=== PATIENT | male | born 1945 | race Caucasian/White ===

== ENCOUNTER → 2017-12-20 | Outpatient (CLI) | payer MEDICARE, OTHER | LOC: CARD 10:34 | PROVIDERS: ATTEND Internal Medicine Cardiovascular Disease | DX: I10 Essential (primary) hypertension (principal); E78.5 Hyperlipidemia, unspecified; M19.90 Unspecified osteoarthritis, unspecified site; F43.8 Other reactions to severe stress; I65.29 Occlusion and stenosis of unspecified carotid artery | CPT/HCPCS: 93306 ==

== ENCOUNTER 2018-06-07 18:35 | Observation (INO) | payer MEDICARE ==
[~2018-06-07] VITALS: Ht 177.8 cm; Wt 82.0 kg
[2018-06-07] MEDS ORDERED: meTOprolol 5 MG/5 ML (LOPRESSOR) VIAL IV ONE ×2 (19:00→21:00)
--- NOTE | 2018-06-07 19:10 | ED Neurological Problem ---
General Chief Complaint: Cardiac/General Problems Stated Complaint: ELEV BP/EPISODE OF SLURRED SPEECH/ARM NUMBNESS Nursing Triage Note: PT AMBULATES TO ROOM 6 PT CO OF HTN PAST COUPLE DAYS, PT STATES AT 1500 HAD SLURRED SPEECH AND NUMBNESS OF R HAND THESE HAVE RESOLVED. PT STATES HAD GOTTEN WORKED UP THIS AFTERNOON AND STARTED FEELING THAT WAY. NO SLURRED SPEECH NOTED, NO WEAKNESS IN R HAND NOTED. Nursing Sepsis Screen: No Definite Risk Source: patient Exam Limitations: no limitations History of Present Illness Date Seen by Provider: Jun 07, 2018 Time Seen by Provider: 18:35 Initial Comments Here with report of episode of hypertension today with slurred speech and right arm numbness. This occurred at about 3 p.m. today but cleared later after eating and writing his arm under cold water. He did eat 2 bananas and that seemed to have helped. He did note that his blood pressure was 200 systolic and this was way out of character for him. He normally runs in the 130s to 140s systolic. Denies chest pain or breathing problems. Ultimately presented to the ER due to the elevated blood pressure. Timing/Duration: other (3.5 hours ago) Severity: moderate Associated Symptoms: No confusion; fatigue; No fever/chills, No nausea/vomiting ; paresthesia, slurred speech; No trouble walking, No vision changes, No weakness Allergies and Home Medications Allergies Coded Allergies: No Known Drug Allergies (Unverified , 06/07/18) Patient Home Medication List Home Medication List Reviewed: Yes Review of Systems Review of Systems Constitutional: see HPI; No chills, No fever Eyes: No Symptoms Reported Ears, Nose, Mouth, Throat: no symptoms reported Respiratory: No short of breath, No wheezing Cardiovascular: No chest pain, No palpitations, No syncope Gastrointestinal: No abdominal pain, No nausea, No vomiting Genitourinary: no symptoms reported Musculoskeletal: No muscle stiffness, No muscle weakness Psychiatric/Neurological: See HPI; Denies Cognitive Dysfunction, Denies Headache; Tingling (right arm) Endocrine: No Symptoms Reported Hematologic/Lymphatic: No Symptoms Reported All Other Systems Reviewed Negative Unless Noted: Yes Past Fdvakvt-Jyqppp-Iskceq Hx Past Med/Social Hx: Reviewed Nursing Past Med/Soc Hx Patient Social History Alcohol Use: Denies Use Recreational Drug Use: No Smoking Status: Never a Smoker Recent Foreign Travel: No Contact w/Someone Who Travel: No Recent Infectious Disease Expo: No Recent Hopitalizations: No Seasonal Allergies Seasonal Allergies: No Past Medical History Surgeries: No Respiratory: No Cardiac: Yes Hypertension Neurological: No Genitourinary: Yes Prostate Problems Gastrointestinal: No Musculoskeletal: No Endocrine: No HEENT: No Cancer: No Psychosocial: No Integumentary: No Family Medical History Reviewed Nursing Family Hx Physical Exam Vital Signs Vital Signs - First Documented 06/07/18 18:39 Temp 98.1 Pulse 86 Resp 16 B/P (MAP) 208/108 (141) Pulse Ox 99 Capillary Refill : Less Than 3 Seconds Height, Weight, BMI Height: 5'10.00" Weight: 180lbs. oz. 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, no motor/sensory deficits, alert, normal mood/affect, oriented x 3 Crainal Nerves: normal hearing, normal speech, PERRL Skin: normal color, warm/dry Progress/Results/Core Measures Results/Orders Lab Results Laboratory Tests Test 06/07/18 18:43 Range/Units White Blood Count 8.1 4.3-11.0 10^3/uL Red Blood Count 4.39 4.35-5.85 10^6/uL Hemoglobin 14.0 13.3-17.7 G/DL Hematocrit 41 40-54 % Mean Corpuscular Volume 93 80-99 FL Mean Corpuscular Hemoglobin 32 25-34 PG Mean Corpuscular Hemoglobin Concent 34 32-36 G/DL Red Cell Distribution Width 12.8 10.0-14.5 % Platelet Count 285 130-400 10^3/uL Mean Platelet Volume 9.5 7.4-10.4 FL Neutrophils (%) (Auto) 77 H 42-75 % Lymphocytes (%) (Auto) 16 12-44 % Monocytes (%) (Auto) 6 0-12 % Eosinophils (%) (Auto) 1 0-10 % Basophils (%) (Auto) 0 0-10 % Neutrophils # (Auto) 6.2 1.8-7.8 X 10^3 Lymphocytes # (Auto) 1.3 1.0-4.0 X 10^3 Monocytes # (Auto) 0.5 0.0-1.0 X 10^3 Eosinophils # (Auto) 0.1 0.0-0.3 10^3/uL Basophils # (Auto) 0.0 0.0-0.1 10^3/uL Prothrombin Time 14.0 12.2-14.7 SEC INR Comment 1.1 0.8-1.4 Activated Partial Thromboplast Time 29 24-35 SEC D-Dimer 0.63 H 0.00-0.49 UG/ML Sodium Level 134 L 135-145 MMOL/L Potassium Level 4.0 3.6-5.0 MMOL/L Chloride Level 105 98-107 MMOL/L Carbon Dioxide Level 20 L 21-32 MMOL/L Anion Gap 9 5-14 MMOL/L Blood Urea Nitrogen 12 7-18 MG/DL Creatinine 0.88 0.60-1.30 MG/DL Estimat Glomerular Filtration Rate > 60 BUN/Creatinine Ratio 14 Glucose Level 103 70-105 MG/DL Calcium Level 9.8 8.5-10.1 MG/DL Corrected Calcium 9.4 8.5-10.1 MG/DL Magnesium Level 2.3 1.8-2.4 MG/DL Total Bilirubin 0.5 0.1-1.0 MG/DL Aspartate Amino Transf (AST/SGOT) 14 5-34 U/L Alanine Aminotransferase (ALT/SGPT) 12 0-55 U/L Alkaline Phosphatase 66 40-136 U/L Myoglobin 60.6 10.0-92.0 NG/ML Troponin I < 0.30 <0.30 NG/ML Total Protein 6.9 6.4-8.2 GM/DL Albumin 4.5 3.2-4.5 GM/DL My Orders Orders - ADELIA WOOD MD Ekg Tracing (06/07/18 18:39) Cbc With Automated Diff (06/07/18 18:58) Comprehensive Metabolic Panel (06/07/18 18:58) Magnesium (06/07/18 18:58) Protime With Inr (06/07/18 18:58) Partial Thromboplastin Time (06/07/18 18:58) Troponin I (06/07/18 18:58) Myoglobin Serum (06/07/18 18:58) Chest 1 View, Ap/Pa Only (06/07/18 18:58) Ct Head Wo-R/O Stroke (06/07/18 18:58) Metoprolol Tartrate Injection (Lopressor (06/07/18 19:00) Fibrin Degradation Products (06/07/18 19:10) Metoprolol Tartrate Injection (Lopressor (06/07/18 21:00) Metoprolol Succinate (Xl) Tab (Toprol Xl (06/07/18 21:00) Dysphagia Screening Tool (06/07/18 20:54) Aspirin Chewable Tablet (Baby Aspirin Ch (06/07/18 20:54) Medications Given in ED Current Medications Medications Dose Ordered Sig/Rosa Route Start Time Stop Time Status Last Admin Dose Admin Metoprolol Tartrate 5 mg ONCE ONCE IV 06/07/18 19:00 06/07/18 19:02 DC 06/07/18 19:38 5 MG Metoprolol Tartrate 5 mg ONCE ONCE IV 06/07/18 21:00 06/07/18 21:01 DC 06/07/18 20:58 5 MG Vital Signs/I&O 06/07/18 18:39 Temp 98.1 Pulse 86 Resp 16 B/P (MAP) 208/108 (141) Pulse Ox 99 Blood Pressure Mean: 141 Progress Progress Note : Progress Note Seen and evaluated. IV, labs, EKG and chest x-ray ordered. CT head ordered. Lopressor 5 mg IV ordered. Monitor patient. Stroke scale was done by me is 0. Patient able to walk and has normal balance. 2100: Patient is doing better and without symptoms but still has elevated blood pressure. Given his earlier symptoms in the labile blood pressure, I believe admission is indicated. Patient did have dysphagia screen done that was negative. I did order at 324 mg by mouth as well as repeat dose of Lopressor 5 and Toprol-XL 50 mg by mouth. I did discuss the case with Dr. Martinez. She accepts patient for admission, observation status. We will order MRI in the morning. Neurochecks every 2 hours 2 and then every 8 hours. Findings concerns were discussed with patient and family who agree with plan. Chest x-ray results discussed with Dr. Martinez. I do believe this is atelectasis and not infiltrate as patient is not febrile and has no elevation of white count currently. Patient was not TPA candidate as he arrived greater than 3 hours after symptom onset and he was symptom-free on arrival. Initial ECG Impression Date: Jun 07, 2018 Initial ECG Impression Time: 18:39 Initial ECG Rate: 98 Initial ECG Rhythm: Normal Sinus Comment Sinus rhythm with normal axis. No evidence of ST elevation [place]. No previous available for comparison. Interpreted by me. Diagnostic Imaging Diagonstic Imaging: Xray Plain Films/CT/US/NM/MRI: chest Comments NAME: LIYAH MORATAYA [facility] REC#: [id number] PT STATUS: REG ER : 1945 PHYSICIAN: ADELIA WOOD MD ADMIT DATE: 06/07/18/ER Signed Date of Exam: 06/07/18 CHEST 1 VIEW, AP/PA ONLY PATIENT HISTORY: Elevated blood pressure. Slurred speech.. TECHNIQUE: Single frontal view of the chest COMPARISON: None FINDINGS: Lung volumes are large. Mild opacities are seen in the right lung base. No pleural effusion or pneumothorax is seen. The cardiac silhouette is normal in size. There is no acute osseous abnormality seen. IMPRESSION: Large lung volumes with mild opacities in the right lung base. This may be due to atelectasis or infiltrate. Dictated by: Dictated on workstation # [id number] Dict: 06/07/181925 Trans: 06/07/181952 Interpreted by: CARA TOMPKINS MD Electronically signed by: CARA TOMPKINS MD 06/07/181952 Diagonstic Imaging: CT Plain Films/CT/US/NM/MRI: head Comments NAME: LIYAH MORATAYA [facility] REC#: [id number] PT STATUS: REG ER : 1945 PHYSICIAN: ADELIA WOOD MD ADMIT DATE: 06/07/18/ER Signed Date of Exam: 06/07/18 CT HEAD WO-R/O STROKE PATIENT HISTORY: Elevated blood pressure and slurred speech. TECHNIQUE: Noncontrast axial CT of the head COMPARISON: None FINDINGS: The ventricles and cortical sulci are diffusely prominent. There is no midline shift or significant mass effect. No acute intracranial hemorrhage is seen. There is no CT evidence of acute territorial ischemia. The patient's head is tilted during the examination. The calvarium appears intact. The visualized paranasal sinuses are clear. Mildly dense MCAs appear symmetric to each other and may be due to atherosclerosis. IMPRESSION: 1. No acute intracranial hemorrhage. No CT evidence of acute territorial ischemia. 2. Mild generalized parenchymal volume loss. Findings discussed with ADELIA WOOD MD by Dr. Tompkins, on 06/07/2018 7:33 PM. Dictated by: Dictated on workstation # [id number] Dict: 06/07/181926 Trans: 06/07/181951 Interpreted by: CARA TOMPKINS MD Electronically signed by: CARA TOMPKINS MD 06/07/181951 Departure Communication (Admissions) Time/Spoke to Admitting Phy: 21:00 Impression Primary Impression: Malignant hypertension Additional Impression: Slurred speech Disposition: ADMITTED INPATIENT Condition: Stable Admissions Decision to Admit Reason: Admit from ER (General) Decision to Admit/Date: Jun 07, 2018 Time/Decision to Admit Time: 21:00 Departure-Patient Inst. Referrals: SHANICE WRIGHT DO (PCP/Family) Primary Care Physician ADELIA WOOD MD Jun 07, 2018 19:10
[2018-06-07 19:18] LABS: BASOPHILS % (AUTO) 0 % (0-10); EOSINOPHILS # (AUTO) 0.1 10^3/uL (0.0-0.3); EOSINOPHILS % (AUTO) 1 % (0-10); HEMATOCRIT 41 % (40-54); LYMPHOCYTES # (AUTO) 1.3 X 10^3 (1.0-4.0); LYMPHOCYTES % (AUTO) 16 % (12-44); MEAN CORPUSCULAR HEMOGLOBIN 32 PG (25-34); MEAN CORPUSCULAR HGB CONC 34 G/DL (32-36); MEAN CORPUSCULAR VOLUME 93 FL (80-99); MEAN PLATELET VOLUME 9.5 FL (7.4-10.4); MONOCYTES # (AUTO) 0.5 X 10^3 (0.0-1.0); MONOCYTES % (AUTO) 6 % (0-12); NEUTROPHILS # (AUTO) 6.2 X 10^3 (1.8-7.8); NEUTROPHILS % (AUTO) 77 % (42-75); PLATELET COUNT 285 10^3/uL (130-400); RED BLOOD COUNT 4.39 10^6/uL (4.35-5.85); RED CELL DISTRIBUTION WIDTH 12.8 % (10.0-14.5); WHITE BLOOD COUNT 8.1 10^3/uL (4.3-11.0)
[2018-06-07 19:27] LABS: FIBRIN DEGRADATION PRODUCTS 0.63 UG/ML (0.00-0.49); INR 1.1 (0.8-1.4)
--- NOTE | 2018-06-07 19:30 | Diagnostic Imaging Report ---
PATIENT HISTORY: Elevated blood pressure. Slurred speech.. TECHNIQUE: Single frontal view of the chest COMPARISON: None FINDINGS: Lung volumes are large. Mild opacities are seen in the right lung base. No pleural effusion or pneumothorax is seen. The cardiac silhouette is normal in size. There is no acute osseous abnormality seen. IMPRESSION: Large lung volumes with mild opacities in the right lung base. This may be due to atelectasis or infiltrate. Dictated by: Dictated on workstation # [id number]
[2018-06-07 19:32] LABS: ALANINE AMINOTRANSFERASE 12 U/L (0-55); ALBUMIN 4.5 GM/DL (3.2-4.5); ALKALINE PHOSPHATASE 66 U/L (40-136); BILIRUBIN,TOTAL 0.5 MG/DL (0.1-1.0); BUN/CREATININE RATIO 14; CALCIUM 9.8 MG/DL (8.5-10.1); CARBON DIOXIDE 20 MMOL/L (21-32); CHLORIDE 105 MMOL/L (98-107); CREATININE SERUM 0.88 MG/DL (0.60-1.30); GFR ESTIMATED > 60; GLUCOSE 103 MG/DL (70-105); MAGNESIUM 2.3 MG/DL (1.8-2.4); SODIUM 134 MMOL/L (135-145); TOTAL PROTEIN 6.9 GM/DL (6.4-8.2)
--- NOTE | 2018-06-07 19:38 | Diagnostic Imaging Report ---
PATIENT HISTORY: Elevated blood pressure and slurred speech. TECHNIQUE: Noncontrast axial CT of the head COMPARISON: None FINDINGS: The ventricles and cortical sulci are diffusely prominent. There is no midline shift or significant mass effect. No acute intracranial hemorrhage is seen. There is no CT evidence of acute territorial ischemia. The patient's head is tilted during the examination. The calvarium appears intact. The visualized paranasal sinuses are clear. Mildly dense MCAs appear symmetric to each other and may be due to atherosclerosis. IMPRESSION: 1. No acute intracranial hemorrhage. No CT evidence of acute territorial ischemia. 2. Mild generalized parenchymal volume loss. Findings discussed with ADELIA WOOD MD by Dr. Chavarria, on 06/07/2018 7:33 PM. Dictated by: Dictated on workstation # [id number]
[2018-06-07 19:39] LABS: MYOGLOBIN SERUM 60.6 NG/ML (10.0-92.0)
[2018-06-07] MEDS ORDERED: ASPIRIN 81 MG CHEW (CHILDREN'S ASA) PO STA (20:54)
[2018-06-07] MEDS ORDERED: meTOproloL SUCCINATE 50 MG (TOPROL XL) TAB PO SCH (21:00)
[2018-06-07 21:56] LABS: BILIRUBIN,URINE NEGATIVE (NEGATIVE); CLARITY,URINE CLEAR; COLOR,URINE YELLOW; GLUCOSE, URINE (UA) NEGATIVE (NEGATIVE); KETONES,URINE NEGATIVE (NEGATIVE); LEUKOCYTE ESTERASE ,URINE NEGATIVE (NEGATIVE); NITRITE,URINE NEGATIVE (NEGATIVE); PH,URINE 6 (5-9); PROTEIN,URINE NEGATIVE (NEGATIVE); UROBILINOGEN,URINE NORMAL (NORMAL)
[2018-06-07 22:02] LABS: SQUAMOUS EPITHELIAL CELL,UR RARE /HPF
[2018-06-07 22:08] VITALS: BP 174/91
[2018-06-07] MEDS ORDERED: meTOprolol 5 MG/5 ML (LOPRESSOR) VIAL IV PRN (23:45)
[2018-06-08] VITALS: BP 175/93
[2018-06-08 04:00] VITALS: BP 173/92
[2018-06-08 06:55] LABS: BASOPHILS % (AUTO) 0 % (0-10); EOSINOPHILS # (AUTO) 0.1 10^3/uL (0.0-0.3); EOSINOPHILS % (AUTO) 2 % (0-10); HEMATOCRIT 41 % (40-54); HEMOGLOBIN 14.3 G/DL (13.3-17.7); LYMPHOCYTES # (AUTO) 2.2 X 10^3 (1.0-4.0); LYMPHOCYTES % (AUTO) 26 % (12-44); MEAN CORPUSCULAR HEMOGLOBIN 32 PG (25-34); MEAN CORPUSCULAR HGB CONC 35 G/DL (32-36); MEAN CORPUSCULAR VOLUME 93 FL (80-99); MEAN PLATELET VOLUME 9.6 FL (7.4-10.4); MONOCYTES # (AUTO) 0.6 X 10^3 (0.0-1.0); MONOCYTES % (AUTO) 8 % (0-12); NEUTROPHILS # (AUTO) 5.4 X 10^3 (1.8-7.8); NEUTROPHILS % (AUTO) 65 % (42-75); PLATELET COUNT 271 10^3/uL (130-400); RED BLOOD COUNT 4.43 10^6/uL (4.35-5.85); RED CELL DISTRIBUTION WIDTH 12.9 % (10.0-14.5); WHITE BLOOD COUNT 8.4 10^3/uL (4.3-11.0)
[2018-06-08 07:12] LABS: ALANINE AMINOTRANSFERASE 13 U/L (0-55); ALBUMIN 4.2 GM/DL (3.2-4.5); ALKALINE PHOSPHATASE 61 U/L (40-136); BILIRUBIN,TOTAL 0.7 MG/DL (0.1-1.0); BUN/CREATININE RATIO 13; CALCIUM 9.5 MG/DL (8.5-10.1); CARBON DIOXIDE 22 MMOL/L (21-32); CHLORIDE 107 MMOL/L (98-107); CREATININE SERUM 0.86 MG/DL (0.60-1.30); GFR ESTIMATED > 60; GLUCOSE 105 MG/DL (70-105); POTASSIUM 3.8 MMOL/L (3.6-5.0); SODIUM 139 MMOL/L (135-145); TOTAL PROTEIN 6.6 GM/DL (6.4-8.2)
[2018-06-08 08:00] VITALS: BP 158/89
[2018-06-08] MEDS ORDERED: ASPIRIN 325 MG (5 GR) TABLET PO SCH (09:00)
[2018-06-08] MEDS ORDERED: meTOproloL SUCCINATE 50 MG (TOPROL XL) TAB PO SCH (09:00)
--- NOTE | 2018-06-08 09:01 | Consultation-Cardiology ---
HPI-Cardiology Cardiology Consultation Date of Consultation 06/08/18 Date of Admission Time Seen by Provider: 08:52 Indication: TIA HPI 73 years old gentleman with history of hypertension, was in his usual state of health until yesterday when he had sudden onset of slurred speech lasted for about 10 minutes then had numbness in his right arm lasted for another 10 minutes and resolved spontaneously. Patient took 500 mg of aspirin at home. Denied any chest pain or palpitation, felt slightly lightheaded. Checked his blood pressure at home and it was over 200. No chest pain or shortness of breath. No palpitation, syncope or near syncopal episode. Patient came into the emergency room and has been feeling well since arrival. No further episodes were reported Home Medications & Allergies Allergies: Coded Allergies: No Known Drug Allergies (Unverified , 06/07/18) Home Medication List Reviewed: Yes HOH-Uztfaa-Pfhicl Hx Patient Social History Marital Status: Alcohol Use: Denies Use Recreational Drug Use: No Smoking Status: Never a Smoker Recent Foreign Travel: No Recent Infectious Disease Expo: No Recent Hopitalizations: No Physical Abuse Screen: No Sexual Abuse: No Past Medical History Past medical history as described below Family Medical History Family Medical Hx Noncontributory to his current condition Review of Systems Constitutional: see HPI, weakness EENTM: see HPI, no symptoms reported Respiratory: see HPI; No cough, No dyspnea on exertion, No hemoptysis, No orthopnea, No phlegm, No short of breath, No stridor, No wheezing, No other Cardiovascular: see HPI; No chest pain, No edema, No Hx of Intervention, No palpitations, No syncope, No vascular heart diseas, No other Gastrointestinal: no symptoms reported, see HPI Genitourinary: no symptoms reported, see HPI Musculoskeletal: no symptoms reported, see HPI Skin: no symptoms reported, see HPI Psychiatric/Neurological: No Symptoms Reported, See HPI Reviewed Test Results Reviewed Test Results Lab Laboratory Tests Test 06/07/18 18:43 06/07/18 19:45 06/08/18 06:15 Range/Units White Blood Count 8.1 8.4 4.3-11.0 10^3/uL Red Blood Count 4.39 4.43 4.35-5.85 10^6/uL Hemoglobin 14.0 14.3 13.3-17.7 G/DL Hematocrit 41 41 40-54 % Mean Corpuscular Volume 93 93 80-99 FL Mean Corpuscular Hemoglobin 32 32 25-34 PG Mean Corpuscular Hemoglobin Concent 34 35 32-36 G/DL Red Cell Distribution Width 12.8 12.9 10.0-14.5 % Platelet Count 285 271 130-400 10^3/uL Mean Platelet Volume 9.5 9.6 7.4-10.4 FL Neutrophils (%) (Auto) 77 H 65 42-75 % Lymphocytes (%) (Auto) 16 26 12-44 % Monocytes (%) (Auto) 6 8 0-12 % Eosinophils (%) (Auto) 1 2 0-10 % Basophils (%) (Auto) 0 0 0-10 % Neutrophils # (Auto) 6.2 5.4 1.8-7.8 X 10^3 Lymphocytes # (Auto) 1.3 2.2 1.0-4.0 X 10^3 Monocytes # (Auto) 0.5 0.6 0.0-1.0 X 10^3 Eosinophils # (Auto) 0.1 0.1 0.0-0.3 10^3/uL Basophils # (Auto) 0.0 0.0 0.0-0.1 10^3/uL Prothrombin Time 14.0 12.2-14.7 SEC INR Comment 1.1 0.8-1.4 Activated Partial Thromboplast Time 29 24-35 SEC D-Dimer 0.63 H 0.00-0.49 UG/ML Sodium Level 134 L 139 135-145 MMOL/L Potassium Level 4.0 3.8 3.6-5.0 MMOL/L Chloride Level 105 107 98-107 MMOL/L Carbon Dioxide Level 20 L 22 21-32 MMOL/L Anion Gap 9 10 5-14 MMOL/L Blood Urea Nitrogen 12 11 7-18 MG/DL Creatinine 0.88 0.86 0.60-1.30 MG/DL Estimat Glomerular Filtration Rate > 60 > 60 BUN/Creatinine Ratio 14 13 Glucose Level 103 105 70-105 MG/DL Calcium Level 9.8 9.5 8.5-10.1 MG/DL Corrected Calcium 9.4 9.3 8.5-10.1 MG/DL Magnesium Level 2.3 1.8-2.4 MG/DL Total Bilirubin 0.5 0.7 0.1-1.0 MG/DL Aspartate Amino Transf (AST/SGOT) 14 21 5-34 U/L Alanine Aminotransferase (ALT/SGPT) 12 13 0-55 U/L Alkaline Phosphatase 66 61 40-136 U/L Myoglobin 60.6 10.0-92.0 NG/ML Troponin I < 0.30 <0.30 NG/ML Total Protein 6.9 6.6 6.4-8.2 GM/DL Albumin 4.5 4.2 3.2-4.5 GM/DL Urine Color YELLOW Urine Clarity CLEAR Urine pH 6 5-9 Urine Specific [place] 1.010 L 1.016-1.022 Urine Protein NEGATIVE NEGATIVE Urine Glucose (UA) NEGATIVE NEGATIVE Urine Ketones NEGATIVE NEGATIVE Urine Nitrite NEGATIVE NEGATIVE Urine Bilirubin NEGATIVE NEGATIVE Urine Urobilinogen NORMAL NORMAL MG/DL Urine Leukocyte Esterase NEGATIVE NEGATIVE Urine RBC (Auto) NEGATIVE NEGATIVE Urine RBC NONE /HPF Urine WBC NONE /HPF Urine Squamous Epithelial Cells RARE /HPF Urine Crystals NONE /LPF Urine Bacteria NONE /HPF Urine Casts NONE /LPF Urine Mucus NEGATIVE /LPF Urine Culture Indicated NO Physical Exam Vital Signs Vital Signs - First Documented 06/07/18 06/07/18 18:39 21:55 Temp 98.1 Pulse 86 Resp 16 B/P (MAP) 208/108 (141) Pulse Ox 99 O2 Delivery Room Air Capillary Refill : Less Than 3 Seconds Height, Weight, BMI Height: 5'10.00" Weight: 180lbs. 13.0oz. 82.560761vx; 27.9 BMI Method:Stated General Appearance: No Apparent Distress, WD/WN Eyes: Bilateral Eye Normal Inspection, Bilateral Eye PERRL, Bilateral Eye EOMI HEENT: PERRL/EOMI, TMs Normal, Normal ENT Inspection, Pharynx Normal Neck: Full Range of Motion, Normal Inspection, Non Tender, Supple, Carotid Bruit Respiratory: Chest Non Tender, Lungs Clear, Normal Breath Sounds, No Accessory Muscle Use, No Respiratory Distress Cardiovascular: Regular Rate, Rhythm, No Edema, No Gallop, No JVD, No Murmur, Normal Peripheral Pulses Gastrointestinal: Normal Bowel Sounds, No Organomegaly, No Pulsatile Mass, Non Tender, Soft Back: Normal Inspection, No CVA Tenderness, No Vertebral Tenderness Extremity: Normal Capillary Refill, Normal Inspection, Normal Range of Motion, Non Tender, No Calf Tenderness, No Pedal Edema Neurologic/Psychiatric: Alert, Oriented x3, No Motor/Sensory Deficits, Normal Mood/Affect Skin: Normal Color, Warm/Dry Lymphatic: No Adenopathy A/P-Cardiology Admission Diagnosis TIA Hypertensive encephalopathy Hypertension Hyperlipidemia Assessment/Plan Transient slurred speech and numbness on the right side resolved spontaneously. Probably TIA versus hypertensive encephalopathy. He is better at this time, agree with aspirin daily, planning for MRI of the head. Hypertension, on beta blockers, I will add losartan, had a long discussion about limiting his salt intake and monitor his tolerance and response. History of hyperlipidemia, I will evaluate lipid profile. Mild bilateral carotid stenosis, last ultrasound was done in November 2017. Continue to monitor History of abnormal EKG with Q waves in the inferior leads. Last cardiac workup was done in 2010 and it was normal. Planning to evaluate echocardiogram. Arthritis. Patient is taking etodolac. Family history of coronary artery disease. Clinical Quality Measures DVT/VTE Risk/Contraindication: Risk Factor Score Per Nursin RFS Level Per Nursing on Admit: 2=Moderate SARAH FERRERA MD Jun 08, 2018 09:01
[2018-06-08 09:11] LABS: CHOLESTEROL 174 MG/DL (< 200); HDL CHOLESTEROL 41 MG/DL (40-60); TRIGLYCERIDES 74 MG/DL (<150); VLDL CHOLESTEROL 15 MG/DL (5-40)
[2018-06-08] MEDS ORDERED: LOSARTAN 50 MG (COZAAR) TAB PO ONE (09:15)
--- NOTE | 2018-06-08 09:45 | Short Stay Summary-Hospitalist ---
History of Present Illness HPI/Chief Complaint Pt is a 73yoCM with a PMH of HTN who presented to the ER with CC of slurred speech and left arm paresthesia. He states his symptoms started after he had to raise his phone. He noticed that his speech was slurred. This was around 1500. This resolved within 10 minutes. He then noticed that his left arm was tingling and felt slightly weaker than normal. He ran it under cold water which resolved most of the symptoms and then he went and ate lunch and his symptoms resolved completely. This all started and resolved within minutes. He then went and checked his BP and it read at 206/108. This prompted him to seek evaluation in the ER. He had a negative CT scan and normal laboratory work but his BP was extremely elevated. He was admitted for observation. This morning he states that his symptoms are still resolved and he is feeling well. Source: patient Date Seen 06/08/18 Time Seen by Provider: 09:45 Attending Physician Yvette Martinez MD PCP Daniel Cruz DO Referring Physician Date of Admission Jun 07, 2018 at 9:06 pm Home Medications & Allergies Home Medications Reviewed patient Home Medication Reconciliation performed by pharmacy medication reconciliations highway technician and/or nursing. Patients Allergies have been reviewed. Allergies Allergies Coded Allergies No Known Drug Allergies (Unverified06/07/18) Past Nffctgc-Stsbfd-Ltfsqu Hx Past Med/Social Hx: Reviewed Nursing Past Med/Soc Hx Patient Social History Marrital Status: Alcohol Use: Denies Use Recreational Drug Use: No Smoking Status: Never a Smoker Physical Abuse Screen: No Sexual Abuse: No Recent Foreign Travel: No Contact w/other who traveled: No Recent Hopitalizations: No Recent Infectious Disease Expo: No Seasonal Allergies Seasonal Allergies: No Past Medical History Currently Using CPAP: No Currently Using BIPAP: No Cardiac: Hypertension Genitourinary: Prostate Problems Gastrointestinal: Gastroesophageal Reflux Musculoskeletal: Arthritis Cancer: Skin Did You Recieve Any Treatments: No What Type of Treatment Did You: Surgical Intervention History of Blood Disorders: No Family History Reviewed Nursing Family Hx No Pertinent Family Hx Review of Systems Constitutional: No chills, No fever EENTM: No blurred vision, No double vision, No nose congestion, No throat pain Respiratory: No cough, No dyspnea on exertion, No short of breath Cardiovascular: No chest pain, No edema, No palpitations Gastrointestinal: No abdominal pain, No constipation, No diarrhea, No nausea, No vomiting Genitourinary: No dysuria; frequency Musculoskeletal: No joint pain, No muscle pain Skin: No lesions, No rash Psychiatric/Neurological: See HPI; Denies Headache, Denies Numbness; Paresthesia, Tingling Physical Exam Physical Exam Vital Signs Capillary Refill : Less Than 3 Seconds Height, Weight, BMI Height: 5'10.00" Weight: 180lbs. 13.0oz. [id number]; 27.9 BMI Method:Stated General Appearance: No Apparent Distress, WD/WN HEENT: PERRL/EOMI, Moist Mucous Membranes Neck: Non Tender, Supple Respiratory: Lungs Clear, No Respiratory Distress Cardiovascular: Regular Rate, Rhythm, No Murmur Gastrointestinal: Normal Bowel Sounds, Non Tender, Soft Extremity: Normal Capillary Refill, No Calf Tenderness Neurologic/Psychiatric: Alert, Oriented x3, Normal Mood/Affect Skin: Normal Color, Warm/Dry Results Results/Procedures Labs Patient resulted labs reviewed. Imaging: Reviewed Imaging Report Short Stay Diagnosis Discharge Diagnosis-Short Stay Admission Diagnosis TIA Final Discharge Diagnosis TIA Conclusion Plan TIA Symptoms consistent with TIA MRI ordered and negative for any acute findings Carotid Dopplers done recently as outpatient without significant disease Discharged home in stable condition to follow up with PCP and Dr Galarza Clinical Quality Measures DVT/VTE Risk/Contraindication: Risk Factor Score Per Nursin RFS Level Per Nursing on Admit: 2=Moderate YVETTE MARTINEZ MD Jun 08, 2018 09:45
[2018-06-08 10:00] VITALS: BP_SYST 140; BP_SYST 150; BP_DIAS 90; BP_DIAS 95
--- NOTE | 2018-06-08 10:08 | Discharge Inst-Simple/Standard ---
Discharge Inst-Standard Discharge Medications New, Converted or Re-Newed RX: Transmitted to Pharmacy Patient Instructions/Follow Up Plan of Care/Instructions/FU: Please continue to take your medications as written. Please follow up with Dr Galarza this week as already scheduled and follow up with Dr Cruz in 1 week to follow up this hospital stay. Activity as Tolerated: Yes Discharge Diet: Cardiac Diet Return to The Hospital For: Slurred speech, facial droop, weakness, numbness, confusion, if you feel you are getting worse. Planned Outpatient Orders/Ref. Pneu Vac Indicated: Yes YVETTE CHO MD Jun 08, 2018 10:08 am
[2018-06-08] MEDS ORDERED: ASPI-586 PO (10:10)
[2018-06-08] MEDS ORDERED: METO-370 PO (10:10)
[2018-06-08] MEDS ORDERED: LOSA50TA7 PO (10:10)
[2018-06-08] MEDS ORDERED: [UNRECOGNIZED DRUG - CODE] PO (10:29)
[2018-06-08] MEDS ORDERED: MELO7.5T46 PO (10:31)
[2018-06-08] MEDS ORDERED: METO-351 PO (10:31)
[2018-06-08] MEDS ORDERED: ASPI-983 PO (10:34)
[2018-06-08] MEDS ORDERED: AVOD0.5CAP PO (10:34)
[2018-06-08] MEDS ORDERED: VIT1CAPS46 PO (10:38)
[2018-06-08 12:00] VITALS: BP 157/83
--- NOTE | 2018-06-08 12:18 | Diagnostic Imaging Report ---
PROCEDURE: MR imaging of the brain without contrast. TECHNIQUE: Multiplanar, multisequence MR imaging of the brain was performed without contrast. INDICATION: Right arm weakness. Slurred speech. COMPARISON: CT head without contrast 06/07/2018. FINDINGS: Mild nonspecific T2 hyperintensities in the supratentorial white matter, presumed leukoaraiosis. Moderate generalized cerebral and cerebellar parenchymal volume loss is age appropriate. No restricted water diffusion or hemosiderin deposition. Normal morphology including the major midline structures, sella, posterior fossa and cerebellar pontine angle. Normal intracranial flow voids. The orbits are unremarkable on this nondedicated exam. No extra-axial fluid collections or hydrocephalus. The paranasal sinuses and mastoids are unremarkable. Normal bone marrow signal. IMPRESSION: No acute intracranial MRI findings. Age-appropriate noncontrast MRI of the brain. Dictated by: Dictated on workstation # [id number]
[2018-06-08 13:20] VITALS: BP 157/83
[2018-06-09] MEDS ORDERED: LOSARTAN 50 MG (COZAAR) TAB PO SCH (09:00)
== END 2018-06-08 12:50 | disposition home or self-care (01) ==
LOC: EDUNIT# 18:35 → ER 18:36 → UNDOADMOB 21:06 → 4TH 21:06 → UNDODISOB 06-08 13:20
PROVIDERS: ADMIT Family Medicine; ATTEND Family Medicine
DX: G45.9 Transient cerebral ischemic attack, unspecified (principal); I10 Essential (primary) hypertension; Z85.828 Personal history of other malignant neoplasm of skin; K21.9 Gastro-esophageal reflux disease without esophagitis; E78.5 Hyperlipidemia, unspecified; I65.23 Occlusion and stenosis of bilateral carotid arteries; M19.91 Primary osteoarthritis, unspecified site; Z82.49 Family history of ischemic heart disease and other diseases of the circulatory system
CPT/HCPCS: 36415; 70450; 70551; 71045; 80053; 80061; 81000; 83735; 83874; 84484; 85025; 85379; 85610; 85730; 93005; 96374; 96376; G0378

== ENCOUNTER 2018-06-16 12:49 | Emergency (ER) | payer MEDICARE ==
[~2018-06-16] VITALS: Ht 177.8 cm; Wt 79.4 kg
[~2018-06-16 12:49] MED LIST: ASPI-586 PO; ASPI-983 PO; AVOD0.5CAP PO; LOSA50TA7 PO; MELO7.5T46 PO; METO-351 PO; METO-370 PO; VIT1CAPS46 PO; [UNRECOGNIZED DRUG - CODE] PO
[2018-06-16] MEDS ORDERED: AMOX-358 PO (15:33)
--- NOTE | 2018-06-16 15:33 | ED Integumentary General ---
General Chief Complaint: Bite-Animal/Human/Insect Stated Complaint: REQUESTING "ANTIBIOTIC SHOT", DOG BITE SUNDAY Nursing Triage Note: PT STATES HAD DOG BITE ON SUNDAY, STATES FEELS LIKE NEED AN ANTIBIOTIC. Source: patient Exam Limitations: no limitations History of Present Illness Date Seen by Provider: Jun 16, 2018 Time Seen by Provider: 15:15 Initial Comments Here with report of dog bite that occurred on Sunday. Has a little bit increased swelling today. Currently not on antibiotic. He did seek help on that day and did get tetanus shot. Has been using Band-Aid and antibiotic ointment over the wounds. Not significantly worse today in fact is a little better but the mild increased swelling. States the wounds actually look better though. Timing/Duration: getting worse Severity: mild Location: extremities (right arm upper portion) Possible Cause: other (done by) Associated Symptoms: edema; No rash Allergies and Home Medications Allergies Coded Allergies: No Known Drug Allergies (Unverified , 06/07/18) Home Medications Amoxicillin/Potassium Clav 1 Each Tablet, 1 EACH PO BID Prescribed by: ADELIA WOOD on 06/16/18 1533 Aspirin 81 Mg Tablet.dr, 81 MG PO DAILY Prescribed by: YVETTE CHO on 06/08/18 1010 Dutasteride 0.5 Mg Cap, 0.5 MG PO DAILY Prescribed by: DEJAH HOLLIDAY on 06/08/18 1034 Gluc/Roger-MSM#1/C/Vitaliy/Fadi/Bor 1 Each Tablet, 2 EACH PO DAILY Prescribed by: DEJAH HOLLIDAY on 06/08/18 1029 Losartan Potassium 50 Mg Tablet, 50 MG PO DAILY Prescribed by: YVETTE CHO on 06/08/18 1010 Meloxicam 7.5 Mg Tablet, 7.5 MG PO DAILY Prescribed by: DEJAH HOLLIDAY on 06/08/18 1031 Metoprolol Succinate 50 Mg Tab.er.24h, 50 MG PO DAILY Prescribed by: YVETTE CHO on 06/08/18 1010 Vit A & D3 in Cod Liver Oil 1 Each Capsule, 1 EACH PO DAILY Prescribed by: DEJAH HOLLIDAY on 06/08/18 1038 Patient Home Medication List Home Medication List Reviewed: Yes Review of Systems Review of Systems Constitutional: see HPI, chills; No fever Respiratory: no symptoms reported Cardiovascular: no symptoms reported Skin: see HPI, change in color; No rash Past Csosuva-Iizeac-Crjhhh Hx Past Med/Social Hx: Reviewed Nursing Past Med/Soc Hx Patient Social History Alcohol Use: Denies Use Recreational Drug Use: No Smoking Status: Never a Smoker Recent Foreign Travel: No Contact w/Someone Who Travel: No Recent Infectious Disease Expo: No Recent Hopitalizations: No Physical Abuse: No Sexual Abuse: No Immunizations Up To Date Tetanus Booster (TDap): Less than 5yrs Seasonal Allergies Seasonal Allergies: No Past Medical History Surgeries: Yes Respiratory: No Currently Using CPAP: No Currently Using BIPAP: No Cardiac: Yes Hypertension Neurological: No Genitourinary: Yes Prostate Problems Gastrointestinal: Yes Gastroesophageal Reflux Musculoskeletal: Yes Arthritis Endocrine: No HEENT: No Cancer: Yes Skin Did You Recieve Any Treatments: No What Type of Treatment Did You: Surgical Intervention Psychosocial: No Integumentary: Yes (skin CA) Blood Disorders: No Family Medical History Reviewed Nursing Family Hx No Pertinent Family Hx Physical Exam Vital Signs Vital Signs - First Documented 06/16/18 15:00 Temp 99.6 Pulse 88 Resp 18 B/P (MAP) 163/89 (113) Pulse Ox 97 Capillary Refill : Less Than 3 Seconds General Appearance: WD/WN, no apparent distress Cardiovascular: regular rate, rhythm, no murmur Respiratory: lungs clear, normal breath sounds Skin: warm/dry, other (mild erythema around the 3 puncture wounds to the right arm on the posterior lateral aspect of the distal biceps area. Mild tenderness around wound.) Progress/Results/Core Measures Results/Orders Vital Signs/I&O 06/16/18 15:00 Temp 99.6 Pulse 88 Resp 18 B/P (MAP) 163/89 (113) Pulse Ox 97 Blood Pressure Mean: 113 Progress Progress Note : Progress Note Seen and evaluated. Patient has had recent tetanus shot. We will initiate Augmentin treatment outpatient. This is discussed with the patient and he agrees. Discharged home with return precautions. Patient verbalize understanding instructions and agreement with plan. Departure Impression Primary Impression: Dog bite Qualified Codes: W54.0XXA - Bitten by dog, initial encounter Disposition: 01 HOME, SELF-CARE Condition: Stable Departure-Patient Inst. Decision time for Depature: 15:31 Referrals: SHANICE WRIGHT DO (PCP/Family) Primary Care Physician Patient Instructions: Animal Bites (DC) Add. Discharge Instructions: All discharge instructions reviewed with patient and/or family. Voiced understanding. Take medications as directed. Follow-up with your Dr. in a few days for recheck. Return for worse pain, fever, vomiting, increasing red streaks up the arm, foul-smelling drainage or other concerns as needed. Scripts Amoxicillin/Potassium Clav (Augmentin 875-125 Tablet) 1 Each Tablet 1 EACH PO BID, #14 TAB 0 Refills Prov: ADELIA WOOD MD 06/16/18 ADELIA WOOD MD Jun 16, 2018 15:33
[2018-06-16 15:49] VITALS: BP 163/89
== END 2018-06-16 15:49 | disposition home or self-care (01) ==
LOC: EDUNIT# 12:49 → ER 12:50
DX: S41.151A Open bite of right upper arm, initial encounter (principal); I10 Essential (primary) hypertension; K21.9 Gastro-esophageal reflux disease without esophagitis; Z85.828 Personal history of other malignant neoplasm of skin; Z79.82 Long term (current) use of aspirin; W54.0XXA Bitten by dog, initial encounter
CPT/HCPCS: 99283

== ENCOUNTER → 2018-07-10 | Outpatient (CLI) | payer MEDICARE ==
[~2018-07-10] MED LIST changes: +AMOX-358 PO
--- NOTE | 2018-07-10 09:35 | Diagnostic Imaging Report ---
PROCEDURE: US DOPPLER ABD/COMPLETE INDICATION: Hypertension TECHNIQUE: Multiple real-time grayscale sonographic images, color and duplex Doppler images were obtained of the urinary system. FINDINGS: The aortic velocity is 77 cm/sec. The RIGHT kidney measures 10.4 x 4.8 x 6.7 cm. The right renal parenchyma and collecting system appear unremarkable. The right renal artery is visualized in its mid and distal aspect. Proximal aspect obscured by overlying bowel gas. The maximum renal artery velocity is 55cm/sec. The maximum renal artery/aortic ratio is 0.71. The LEFT kidney measures 11.2 x 5.5 x 4.8 cm. The left renal parenchyma and collecting system appear unremarkable. The left renal artery is visualized in its proximal, mid and distal aspect. The maximum renal artery velocity is 129cm/sec. The maximum renal artery/aortic ratio is 1.68. The urinary bladder is unremarkable. Bilateral ureteral jets demonstrated IMPRESSION: 1. Unremarkable renal ultrasound with doppler. The proximal right renal artery however is obscured by overlying bowel gas. (RA/AO ratios > 3.0 may suggest potential hemodynamically significant stenosis.) Dictated by: Dictated on workstation # [id number]
== END ==
LOC: RAD 07:58
PROVIDERS: ATTEND Internal Medicine
DX: I10 Essential (primary) hypertension (principal)
CPT/HCPCS: 93975

== ENCOUNTER 2018-07-31 15:00 | Outpatient (CLI) | payer MEDICARE | END 2018-07-31 15:45 | disposition home or self-care (01) | LOC: SLEEP 15:00 | PROVIDERS: ATTEND Internal Medicine | DX: G47.33 Obstructive sleep apnea (adult) (pediatric) (principal); I10 Essential (primary) hypertension; Z86.73 Personal history of transient ischemic attack (TIA), and cerebral infarction without residual deficits ==

== ENCOUNTER 2018-08-14 20:30 | Outpatient (CLI) | payer MEDICARE | END 2018-08-15 06:59 | disposition home or self-care (01) | LOC: SLEEP 20:30 | PROVIDERS: ATTEND Nurse Practitioner | DX: G47.33 Obstructive sleep apnea (adult) (pediatric) (principal); G47.61 Periodic limb movement disorder | CPT/HCPCS: 95811 ==

== ENCOUNTER 2019-03-17 14:50 | Outpatient (CLI) | payer MEDICARE ==
[~2019-03-17] VITALS: Ht 177.8 cm; Wt 79.7 kg
[~2019-03-17 14:50] MED LIST changes: +AMLO5TAB9 PO; +LOSA100T57 PO; +LOSA50TA63 PO; -LOSA50TA7 PO
== END 2019-03-17 15:02 | disposition home or self-care (01) ==
LOC: PREOP 14:50
PROVIDERS: ATTEND Surgery
DX: Z01.818 Encounter for other preprocedural examination (principal)

== ENCOUNTER → 2019-03-21 | Day surgery (SDC) | payer MEDICARE ==
[~2019-03-21] VITALS: Ht 177.8 cm; Wt 79.7 kg
[~2019-03-21] MED LIST changes: +ACETAMINOPHEN 325 MG TABLET PO PRN; +HYDROcodone/APAP 5 MG/325 MG (LORTAB) TAB PO PRN; +LIDOCAINE JELLY 2% 6 ML SYRINGE MM PRN; +LIDOCAINE JELLY 2% 6 ML SYRINGE ONE; +MIDAZOLAM 2 MG/2 ML (VERSED) VIAL IVP ONE; +MIDAZOLAM 2 MG/2 ML (VERSED) VIAL ONE; +NS IV 500 ML 500 ML IV PRN; +NS IV 500 ML 500 ML ONE; +ONDANSETRON 4 MG/2 ML (SDV) Z0FRAN IVP PRN; +fentaNYL INJECTION 100 MCG/2 ML AMP IVP ONE; +fentaNYL INJECTION 100 MCG/2 ML AMP ONE; +morphine INJ 10 MG/ML 1ML (SYR OR VIAL) IVP PRN
--- OUTSIDE RECORDS SUMMARY | 2019-03-21 12:20 | XMS REPORT | Continuity of Care Document ---
Author Organization Unknown Address Unknown Allergies Active Description Code Type Severity Reaction Onset Reported/Identified Relationship to Patient Clinical Status Yes No Known Drug Allergies [id number] Drug Allergy Unknown N/A 03/17/2019 Medications There is no data. Problems Date Dx Coded Attending Type Code Diagnosis Diagnosed By 12/31/2017 SARAH FERRERA MD, Ot E78.5 HYPERLIPIDEMIA, UNSPECIFIED 12/31/2017 SARAH FERRERA MD, Ot F43.8 OTHER REACTIONS TO SEVERE STRESS 12/31/2017 SARAH FERRERA MD, Ot I10 ESSENTIAL (PRIMARY) HYPERTENSION 12/31/2017 SARAH FERRERA MD Ot I65.29 OCCLUSION AND STENOSIS OF UNSPECIFIED CA 12/31/2017 SARAH FERRERA MD, Ot M19.90 UNSPECIFIED OSTEOARTHRITIS, UNSPECIFIED 06/08/2018 YVETTE CHO MD, Ot E78.5 HYPERLIPIDEMIA, UNSPECIFIED 06/08/2018 YVETTE CHO MD, Ot G45.9 TRANSIENT CEREBRAL ISCHEMIC ATTACK, UNSP 06/08/2018 YVETTE CHO MD, Ot I10 ESSENTIAL (PRIMARY) HYPERTENSION 06/08/2018 YVETTE CHO MD, Ot 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 06/08/2018 YVETTE CHO MD, Ot K21.9 GASTRO-ESOPHAGEAL REFLUX DISEASE WITHOUT 06/08/2018 YVETTE CHO MD, Ot M19.91 PRIMARY OSTEOARTHRITIS, UNSPECIFIED SITE 06/08/2018 YVETTE CHO MD, Ot Z82.49 FAMILY HX OF ISCHEM HEART DIS AND OTH DI 06/08/2018 YVETTE CHO MD, Ot Z85.828 PERSONAL HISTORY OF OTHER MALIGNANT NEOP 06/08/2018 YVETTE CHO MD, Ot E78.5 HYPERLIPIDEMIA, UNSPECIFIED 06/08/2018 YVETTE CHO MD, Ot G45.9 TRANSIENT CEREBRAL ISCHEMIC ATTACK, UNSP 06/08/2018 YVETTE CHO MD, Ot I10 ESSENTIAL (PRIMARY) HYPERTENSION 06/08/2018 YVETTE CHO MD Ot 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 06/08/2018 YVETTE CHO MD, Ot K21.9 GASTRO-ESOPHAGEAL REFLUX DISEASE WITHOUT 06/08/2018 YVETTE CHO MD Ot M19.91 PRIMARY OSTEOARTHRITIS, UNSPECIFIED SITE 06/08/2018 YVETTE CHO MD Ot Z82.49 FAMILY HX OF ISCHEM HEART DIS AND OTH DI 06/08/2018 YVETTE CHO MD, Ot Z85.828 PERSONAL HISTORY OF OTHER MALIGNANT NEOP 06/16/2018 ADELIA WOOD MD, Ot I10 ESSENTIAL (PRIMARY) HYPERTENSION 06/16/2018 ADELIA WOOD MD, Ot K21.9 GASTRO-ESOPHAGEAL REFLUX DISEASE WITHOUT 06/16/2018 ADELIA WOOD MD Ot S41.151A OPEN BITE OF RIGHT UPPER ARM, INITIAL EN 06/16/2018 ADELIA WOOD MD Ot W54.0XXA BITTEN BY DOG, INITIAL ENCOUNTER 06/16/2018 ADELIA WOOD MD, Ot Z79.82 MCC (CURRENT) USE OF ASPIRIN 06/16/2018 ADELIA WOOD MD, Ot Z85.828 PERSONAL HISTORY OF OTHER MALIGNANT NEOP 06/18/2018 ADELIA WOOD MD, Ot I10 ESSENTIAL (PRIMARY) HYPERTENSION 06/18/2018 ADELIA WOOD MD, Ot K21.9 GASTRO-ESOPHAGEAL REFLUX DISEASE WITHOUT 06/18/2018 ADELIA WOOD MD Ot S41.151A OPEN BITE OF RIGHT UPPER ARM, INITIAL EN 06/18/2018 ADELIA WOOD MD Ot W54.0XXA BITTEN BY DOG, INITIAL ENCOUNTER 06/18/2018 ADELIA WOOD MD Ot Z79.82 RETORT PRE COOKER (CURRENT) USE OF ASPIRIN 06/18/2018 ADELIA WOOD MD, Ot Z85.828 PERSONAL HISTORY OF OTHER MALIGNANT NEOP 07/08/2018 SHANICE WRIGHT DO Ot I10 ESSENTIAL (PRIMARY) HYPERTENSION 07/11/2018 SHANICE WRIGHT DO Ot I10 ESSENTIAL (PRIMARY) HYPERTENSION 07/22/2018 SHANICE WRIGHT DO Ot I10 ESSENTIAL (PRIMARY) HYPERTENSION 07/31/2018 SHANICE WRIGHT DO Ot G47.33 OBSTRUCTIVE SLEEP APNEA (ADULT) (PEDIATR 07/31/2018 WRIGHTSHANICE ROCA DO Ot I10 ESSENTIAL (PRIMARY) HYPERTENSION 07/31/2018 WRIGHTSHANICE ROCA DO Ot Z86.73 PRSNL HX OF TIA (TIA), AND CEREB INFRC W 08/01/2018 SHANICE WRIGHT DO Ot G47.33 OBSTRUCTIVE SLEEP APNEA (ADULT) (PEDIATR 08/01/2018 WRIGHTSHANICE RAY DO Ot I10 ESSENTIAL (PRIMARY) HYPERTENSION 08/01/2018 WRIGHTSHANICE RAY DO Ot Z86.73 PRSNL HX OF TIA (TIA), AND CEREB INFRC W 08/08/2018 JESSICA NUNEZ INSTITUTIONAL RESEARCH DIRECTOR Ot G47.33 OBSTRUCTIVE SLEEP APNEA (ADULT) (PEDIATR 08/14/2018 JESSICA NUNEZ INSTITUTIONAL RESEARCH DIRECTOR Ot G47.33 OBSTRUCTIVE SLEEP APNEA (ADULT) (PEDIATR 08/14/2018 JESSICA NUNEZ INSTITUTIONAL RESEARCH DIRECTOR Ot G47.33 OBSTRUCTIVE SLEEP APNEA (ADULT) (PEDIATR 08/15/2018 JESSICA NUNEZ INSTITUTIONAL RESEARCH DIRECTOR Ot G47.33 OBSTRUCTIVE SLEEP APNEA (ADULT) (PEDIATR 08/15/2018 JESSICA NUNEZ INSTITUTIONAL RESEARCH DIRECTOR Ot G47.61 PERIODIC LIMB MOVEMENT DISORDER 08/19/2018 JESSICA NUNEZ INSTITUTIONAL RESEARCH DIRECTOR Ot G47.33 OBSTRUCTIVE SLEEP APNEA (ADULT) (PEDIATR 08/19/2018 JESSICA NUNEZ INSTITUTIONAL RESEARCH DIRECTOR Ot G47.61 PERIODIC LIMB MOVEMENT DISORDER 03/13/2019 SHUN WEINER MD Ot Z01.818 ENCOUNTER FOR OTHER PREPROCEDURAL EXAMIN 03/17/2019 SHUN WEINER MD Ot Z01.818 ENCOUNTER FOR OTHER PREPROCEDURAL EXAMIN 03/17/2019 SHUN WEINER MD Ot Z01.818 ENCOUNTER FOR OTHER PREPROCEDURAL EXAMIN 03/18/2019 SHUN WEINER MD Ot Z01.818 ENCOUNTER FOR OTHER PREPROCEDURAL EXAMIN Procedures There is no data. Results Test Result Range Complete blood count (CBC) with automated white blood cell (WBC) differential - 06/07/18 18:43 Blood leukocytes automated count (number/volume) 8.1 10*3/uL 4.3-11.0 Blood erythrocytes automated count (number/volume) 4.39 10*6/uL 4.35-5.85 Venous blood hemoglobin measurement (mass/volume) 14.0 g/dL 13.3-17.7 Blood hematocrit (volume fraction) 41 % 40-54 Automated erythrocyte mean corpuscular volume 93 [foz_us] 80-99 Automated erythrocyte mean corpuscular hemoglobin (mass per erythrocyte) 32 pg 25-34 Automated erythrocyte mean corpuscular hemoglobin concentration measurement (mass/volume) 34 g/dL 32-36 Automated erythrocyte distribution width ratio 12.8 % 10.0- 14.5 Automated blood platelet count (count/volume) 285 10*3/uL 130-400 Automated blood platelet mean volume measurement 9.5 [foz_us] 7.4-10.4 Automated blood neutrophils/100 leukocytes 77 % 42-75 Automated blood lymphocytes/100 leukocytes 16 % 12-44 Blood monocytes/100 leukocytes 6 % 0-12 Automated blood eosinophils/100 leukocytes 1 % 0-10 Automated blood basophils/100 leukocytes 0 % 0-10 Blood neutrophils automated count (number/volume) 6.2 10*3 1.8-7.8 Blood lymphocytes automated count (number/volume) 1.3 10*3 1.0-4.0 Blood monocytes automated count (number/volume) 0.5 10*3 0.0- 1.0 Automated eosinophil count 0.1 10*3/uL 0.0-0.3 Automated blood basophil count (count/volume) 0.0 10*3/uL 0.0-0.1 PT panel in platelet poor plasma by coagulation assay - 06/07/18 18:43 Prothrombin time (PT) in platelet poor plasma by coagulation assay 14.0 s 12.2-14.7 INR in platelet poor plasma or blood by coagulation assay 1.1 0.8-1.4 Activated partial thromboplastin time (aPTT) in platelet poor plasma bycoagulation assay - 06/07/18 18:43 Activated partial thromboplastin time (aPTT) in platelet poor plasma bycoagulation assay 29 s 24-35 Fibrin D-dimer FEU measurement in platelet poor plasma (mass/volume) - 06/07/18 18:43 Fibrin D-dimer FEU measurement in platelet poor plasma (mass/volume) 0.63 ug/mL 0.00-0.49 Comprehensive metabolic panel - 06/07/18 18:43 Serum or plasma sodium measurement (moles/volume) 134 mmol/L 135-145 Serum or plasma potassium measurement (moles/volume) 4.0 mmol/L 3.6-5.0 Serum or plasma chloride measurement (moles/volume) 105 mmol/L 98-107 Carbon dioxide 20 mmol/L 21-32 Serum or plasma anion gap determination (moles/volume) 9 mmol/L 5-14 Serum or plasma urea nitrogen measurement (mass/volume) 12 mg/dL 7-18 Serum or plasma creatinine measurement (mass/volume) 0.88 mg/dL 0.60-1.30 Serum or plasma urea nitrogen/creatinine mass ratio 14 NRG Serum or plasma creatinine measurement with calculation of estimated glomerular filtration rate > NRG Serum or plasma glucose measurement (mass/volume) 103 mg/dL 70-105 Serum or plasma calcium measurement (mass/volume) 9.8 mg/dL 8.5-10.1 Serum or plasma total bilirubin measurement (mass/volume) 0.5 mg/dL 0.1-1.0 Serum or plasma alkaline phosphatase measurement (enzymatic activity/volume) 66 U/L 40-136 Serum or plasma aspartate aminotransferase measurement (enzymatic activity/volume) 14 U/L 5-34 Serum or plasma alanine aminotransferase measurement (enzymatic activity/volume) 12 U/L 0-55 Serum or plasma protein measurement (mass/volume) 6.9 g/dL 6.4-8.2 Serum or plasma albumin measurement (mass/volume) 4.5 g/dL 3.2-4.5 CALCIUM CORRECTED 9.4 mg/dL 8.5-10.1 Magnesium - 06/07/18 18:43 Magnesium 2.3 mg/dL 1.8-2.4 Serum or plasma troponin i.cardiac measurement (mass/volume) - 06/07/18 18:43 Serum or plasma troponin i.cardiac measurement (mass/volume) < ng/mL <0.30 Myoglobin, serum - 06/07/18 18:43 Myoglobin, serum 60.6 ng/mL 10.0-92.0 Complete urinalysis with reflex to culture - 06/07/18 19:45 Urine color determination YELLOW NRG Urine clarity determination CLEAR NRG Urine pH measurement by test strip 6 5-9 Specific gravity of urine by test strip 1.010 1.016-1.022 Urine protein assay by test strip, semi-quantitative NEGATIVE NEGATIVE Urine glucose detection by automated test strip NEGATIVE NEGATIVE Erythrocytes detection in urine sediment by light microscopy NEGATIVE NEGATIVE Urine ketones detection by automated test strip NEGATIVE NEGATIVE Urine nitrite detection by test strip NEGATIVE NEGATIVE Urine total bilirubin detection by test strip NEGATIVE NEGATIVE Urine urobilinogen measurement by automated test strip (mass/volume) NORMAL NORMAL Urine leukocyte esterase detection by dipstick NEGATIVE NEGATIVE Automated urine sediment erythrocyte count by microscopy (number/high power field) NONE NRG Automated urine sediment leukocyte count by microscopy (number/high power field) NONE NRG Bacteria detection in urine sediment by light microscopy NONE NRG Squamous epithelial cells detection in urine sediment by light microscopy RARE NRG Crystals detection in urine sediment by light microscopy NONE NRG Casts detection in urine sediment by light microscopy NONE NRG Mucus detection in urine sediment by light microscopy NEGATIVE NRG Complete urinalysis with reflex to culture NO NRG Complete blood count (CBC) with automated white blood cell (WBC) differential - 06/08/18 06:15 Blood leukocytes automated count (number/volume) 8.4 10*3/uL 4.3-11.0 Blood erythrocytes automated count (number/volume) 4.43 10*6/uL 4.35-5.85 Venous blood hemoglobin measurement (mass/volume) 14.3 g/dL 13.3-17.7 Blood hematocrit (volume fraction) 41 % 40-54 Automated erythrocyte mean corpuscular volume 93 [foz_us] 80-99 Automated erythrocyte mean corpuscular hemoglobin (mass per erythrocyte) 32 pg 25-34 Automated erythrocyte mean corpuscular hemoglobin concentration measurement (mass/volume) 35 g/dL 32-36 Automated erythrocyte distribution width ratio 12.9 % 10.0- 14.5 Automated blood platelet count (count/volume) 271 10*3/uL 130-400 Automated blood platelet mean volume measurement 9.6 [foz_us] 7.4-10.4 Automated blood neutrophils/100 leukocytes 65 % 42-75 Automated blood lymphocytes/100 leukocytes 26 % 12-44 Blood monocytes/100 leukocytes 8 % 0-12 Automated blood eosinophils/100 leukocytes 2 % 0-10 Automated blood basophils/100 leukocytes 0 % 0-10 Blood neutrophils automated count (number/volume) 5.4 10*3 1.8-7.8 Blood lymphocytes automated count (number/volume) 2.2 10*3 1.0-4.0 Blood monocytes automated count (number/volume) 0.6 10*3 0.0- 1.0 Automated eosinophil count 0.1 10*3/uL 0.0-0.3 Automated blood basophil count (count/volume) 0.0 10*3/uL 0.0-0.1 Comprehensive metabolic panel - 06/08/18 06:15 Serum or plasma sodium measurement (moles/volume) 139 mmol/L 135-145 Serum or plasma potassium measurement (moles/volume) 3.8 mmol/L 3.6-5.0 Serum or plasma chloride measurement (moles/volume) 107 mmol/L 98-107 Carbon dioxide 22 mmol/L 21-32 Serum or plasma anion gap determination (moles/volume) 10 mmol/L 5-14 Serum or plasma urea nitrogen measurement (mass/volume) 11 mg/dL 7-18 Serum or plasma creatinine measurement (mass/volume) 0.86 mg/dL 0.60-1.30 Serum or plasma urea nitrogen/creatinine mass ratio 13 NRG Serum or plasma creatinine measurement with calculation of estimated glomerular filtration rate > NRG Serum or plasma glucose measurement (mass/volume) 105 mg/dL 70-105 Serum or plasma calcium measurement (mass/volume) 9.5 mg/dL 8.5-10.1 Serum or plasma total bilirubin measurement (mass/volume) 0.7 mg/dL 0.1-1.0 Serum or plasma alkaline phosphatase measurement (enzymatic activity/volume) 61 U/L 40-136 Serum or plasma aspartate aminotransferase measurement (enzymatic activity/volume) 21 U/L 5-34 Serum or plasma alanine aminotransferase measurement (enzymatic activity/volume) 13 U/L 0-55 Serum or plasma protein measurement (mass/volume) 6.6 g/dL 6.4-8.2 Serum or plasma albumin measurement (mass/volume) 4.2 g/dL 3.2-4.5 CALCIUM CORRECTED 9.3 mg/dL 8.5-10.1 Lipid 1996 panel - 06/08/18 06:15 Serum or plasma triglyceride measurement (mass/volume) 74 mg/dL <150 Serum or plasma cholesterol measurement (mass/volume) 174 mg/dL < 200 Serum or plasma cholesterol in HDL measurement (mass/volume) 41 mg/dL 40-60 Cholesterol in LDL [mass/volume] in serum or plasma by direct assay 129 mg/dL 1-129 Serum or plasma cholesterol in VLDL measurement (mass/volume) 15 mg/dL 5-40 Encounters ACCT No. Visit Date/Time Discharge Status Pt. Type Provider Facility Loc./Unit Complaint [id number] 03/17/2019 14:50:00 03/17/2019 15:02:00 DIS Outpatient SHUN WEINER MD [facility] PREOP COLONOSCOPY [id number] 08/14/2018 20:30:00 08/15/2018 06:59:00 DIS Outpatient JESSICA NUNEZ APRN [facility] SLEEP OBSTRUCTIVE SLEEP APNEA [id number] 07/31/2018 15:00:00 07/31/2018 15:45:00 DIS Outpatient SHANICE WRIGHT DO [facility] SLEEP OBSTRUCTIVE SLEEP APNEA [id number] 07/10/2018 07:58:00 07/10/2018 23:59:59 CLS Outpatient SHANICE WRIGHT DO [facility] RAD HTN I10 [id number] 06/16/2018 12:50:00 06/16/2018 15:49:00 DIS Emergency ADELIA WOOD MD [facility] ER REQUESTING "ANTIBIOTIC SHOT", DOG BITE SUNDAY [id number] 06/07/2018 21:06:00 06/08/2018 13:20:00 DIS Inpatient YVETTE CHO MD [facility] 4TH MALIGNANT HTN,SLURRED SPEECH [id number] 12/20/2017 10:34:00 12/20/2017 23:59:59 CLS Outpatient SARAH FERRERA MD [facility] CARD I65.29 CAROTID ARTERY STENOSIS [id number] 03/21/2019 12:17:00 ACT Outpatient SHUN WEINER MD [facility] ENDO SCREENING
[2019-03-21 12:50] VITALS: BP 153/89
--- NOTE | 2019-03-21 13:06 | Progress Note-Pre Operative ---
Pre-Operative Progress Note H&P Reviewed The H&P was reviewed, patient examined and no changes noted. Date Seen by Provider: Mar 21, 2019 Time Seen by Provider: 13:00 Date H&P Reviewed: Mar 21, 2019 Time H&P Reviewed: 13:00 Pre-Operative Diagnosis: screening SHUN Christianson MD Mar 21, 2019 13:06
--- NOTE | 2019-03-21 13:06 | Conscious Sedation/ASA ---
Conscious Sedation Pre-Proced Time 13:00 ASA Score 2 For ASA 3 and 4: Consider anesthesia and medical clearance. Also, for patients with a history of failed moderate sedation consider anesthesia. Airway Lungs Heart ASA score ASA 1: a normal healthy patient ASA 2: a patient with a mild systemic disease (mid diabetes, controlled hypertension, obesity ASA 3: a patient with a severe systemic disease that limits activity (angina, COPD, prior Myocardial infarction) ASA 4: a patient with an incapacitating disease that is a constant threat to life (CHF, renal failure) ASA 5: a moribund patient not expected to survive 24 hrs. (ruptured aneurysm) ASA 6: a declared brain- patient whose organs are being harvested. For emergent operations, add the letter E after the classification Mallampati Classification Grade 2 Sedation Plan Analgesia, Amnesia, Plan communicated to team members, Discussed options with patient/fam, Discussed risks with patient/fam The patient is an appropriate candidate to undergo the planned procedure, sedation, and anesthesia. The patient immediately re-assessed prior to indication. SHUN WEINER MD Mar 21, 2019 13:06
--- NOTE | 2019-03-21 13:08 | Discharge Inst-Surgical ---
D/C Lap Instructions-REGINE Follow Up PRN Activity as tolerated High Fiber Diet 25g or more per day Avoid Alcohol, Caffeine, Spicy [place] and Acid foods. Drink 64 fluid oz or more of fluids per day. Symptoms to Report: Fever over 101 degree F, Nausea/Vomiting If any problems/questions: Contact your physician or go to Emergency Room SHUN WEINER MD Mar 21, 2019 13:08
[2019-03-21 14:10] VITALS: BP_SYST 100; BP_SYST 84; BP_DIAS 43; BP_DIAS 57
--- NOTE | 2019-03-21 14:10 | Progress Note-Post Operative ---
Post-Operative Progess Note Surgeon (s)/Hydraulic Assembler (s) Surgeon SHUN WEINER MD Hydraulic Assembler: none Pre-Operative Diagnosis screening colo Post-Operative Diagnosis mild chronic stage 2 ext and int hemorrhoids. Procedure & Operative Findings Date of Procedure 03/21/19 Procedure Performed/Findings Colonoscopy. Anesthesia Type cs Estimated Blood Loss Estimated blood loss (mL): minimal Specimens/Packing Specimens Removed none SHUN WEINER MD Mar 21, 2019 14:10
== END | disposition home or self-care (01) ==
LOC: ENDO 12:17
PROVIDERS: ATTEND Surgery
DX: Z12.11 Encounter for screening for malignant neoplasm of colon (principal); K64.1 Second degree hemorrhoids; I10 Essential (primary) hypertension; G47.33 Obstructive sleep apnea (adult) (pediatric); F41.9 Anxiety disorder, unspecified; M19.91 Primary osteoarthritis, unspecified site; Z79.82 Long term (current) use of aspirin; Z79.899 Other long term (current) drug therapy

== ENCOUNTER 2019-06-06 05:31 | Outpatient (CLI) | payer MEDICARE ==
[~2019-06-06] VITALS: Ht 177.8 cm; Wt 77.1 kg
[~2019-06-06 05:31] MED LIST changes: -ACETAMINOPHEN 325 MG TABLET PO PRN; -HYDROcodone/APAP 5 MG/325 MG (LORTAB) TAB PO PRN; -LIDOCAINE JELLY 2% 6 ML SYRINGE MM PRN; -LIDOCAINE JELLY 2% 6 ML SYRINGE ONE; -MIDAZOLAM 2 MG/2 ML (VERSED) VIAL IVP ONE; -MIDAZOLAM 2 MG/2 ML (VERSED) VIAL ONE; -NS IV 500 ML 500 ML IV PRN; -NS IV 500 ML 500 ML ONE; -ONDANSETRON 4 MG/2 ML (SDV) Z0FRAN IVP PRN; -fentaNYL INJECTION 100 MCG/2 ML AMP IVP ONE; -fentaNYL INJECTION 100 MCG/2 ML AMP ONE; -morphine INJ 10 MG/ML 1ML (SYR OR VIAL) IVP PRN
[2019-06-06] MEDS ORDERED: GLUC-235 PO (11:20)
[2019-06-06] MEDS ORDERED: METO-370 PO (11:20)
[2019-06-06] MEDS ORDERED: AVOD0.5CAP PO (11:20)
[2019-06-06] MEDS ORDERED: OM3/1CAP3 PO (11:20)
[2019-06-06] MEDS ORDERED: MELO7.5T46 PO (11:20)
[2019-06-06] MEDS ORDERED: DOCU100T2 PO (11:20)
== END 2019-06-06 11:27 | disposition home or self-care (01) ==
LOC: PREOP 05:31
PROVIDERS: ATTEND Urology
DX: Z01.818 Encounter for other preprocedural examination (principal)

== ENCOUNTER 2019-06-10 05:58 | Day surgery (SDC) | payer MEDICARE ==
[2019-06-10] VITALS (10 sets, daily range): BP systolic 100–163; BP diastolic 59–95
[~2019-06-10] VITALS: Ht 177.8 cm; Wt 77.1 kg
[~2019-06-10 05:58] MED LIST changes: +DOCU100T2 PO; +GLUC-235 PO; +OM3/1CAP3 PO
[2019-06-10] MEDS ORDERED: LACTATED RINGERS 1,000 ML IV PRN (06:12)
[2019-06-10] MEDS ORDERED: ceFAZolin INJECTION 1,000 MG in WATER (STERILE) FOR INJECTION 10 ML IV ONE (06:15)
[2019-06-10] MEDS ORDERED: MIDAZOLAM 2 MG/2 ML (VERSED) VIAL ONE (06:41)
[2019-06-10] MEDS ORDERED: DEXAMETHASONE 10 MG/ML (DECADRON) 1 ML VIAL ONE (06:41)
[2019-06-10] MEDS ORDERED: ONDANSETRON 4 MG/2 ML (SDV) Z0FRAN ONE (06:41)
[2019-06-10] MEDS ORDERED: fentaNYL INJECTION 100 MCG/2 ML AMP ONE (06:41)
[2019-06-10] MEDS ORDERED: LIDOCAINE PF 2% 5 ML (XYLOCAINE) VIAL ONE (06:41)
[2019-06-10] MEDS ORDERED: proPOfol 200 MG/20 ML (DIPRIVAN) VIAL IV ONE (06:41)
[2019-06-10] MEDS ORDERED: SEVOFLURANE (ULTANE) 15 ML INHAL SOLN ONE ×2 (06:49→08:06)
--- NOTE | 2019-06-10 07:16 | Progress Note-Pre Operative ---
Pre-Operative Progress Note H&P Reviewed The H&P was reviewed, patient examined and no changes noted. 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
--- NOTE | 2019-06-10 07:19 | Progress Note-Post Operative ---
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
--- NOTE | 2019-06-10 07:22 | Discharge Inst-Urology ---
Discharge Inst-Urology Reconcile Patient Problems Problems Reviewed?: Yes Patient Instructions/Follow Up Plan/Assessment/Instructions Please make appointment to been seen in office in 2 weeks. Rest till then and scrotal support Ice to scrotum in RR and at home for 6 hours and then PRN To office tomorrow 9am to DC drain, may shower after that, no bath Keep bowels soft and moving Increase oral fluids for 48 hours and then as needed. Diet as tolerated. If questions or concerns contact your physician Or seek help at emergency department. JATIN VARGHESE MD Jun 10, 2019 07:22
[2019-06-10] MEDS ORDERED: PHENYLEPHRINE 100 MCG/ML 10 ML (ANESTHESIA) SYR ONE (07:41)
[2019-06-10] MEDS ORDERED: HYDROmorphone 2 MG/ML VIAL (DILAUDID) ONE (08:19)
[2019-06-10] MEDS ORDERED: ONDANSETRON 4 MG/2 ML (SDV) Z0FRAN IVP PRN (08:30)
[2019-06-10] MEDS ORDERED: HYDROmorphone 2 MG/ML VIAL (DILAUDID) IV ONE (08:30)
[2019-06-10] MEDS ORDERED: HYDR-3870 PO (09:52)
[2019-06-10] MEDS ORDERED: CEPH-507 PO (09:52)
--- NOTE | 2019-06-10 09:52 | Anesthesia-General Post-Op ---
General Patient Condition Mental Status/LOC: Same as Preop Cardiovascular: Satisfactory Nausea/Vomiting: Absent Respiratory: Satisfactory Pain: Controlled Complications: Absent Post Op Complications Complications None Follow Up Care/Instructions Patient Instructions None needed. Anesthesia/Patient Condition Patient Condition Patient is doing well, no complaints, stable vital signs, no apparent adverse anesthesia problems. No complications reported per nursing. CHLOE MORATAYA CRNA Jun 10, 2019 09:52
--- NOTE | 2019-06-10 13:55 | OPERATIVE REPORT ---
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 OPERATIONS PERFORMED: Right hydrocelectomy, right orchiectomy and excision of lipoma of spermatic cord. SURGEON: Donnell Varghese MD ANESTHESIA: General. COMPLICATIONS: None. DESCRIPTION OF PROCEDURE: Under satisfactory general anesthesia, the patient in supine position, abdomen, genitalia and thigh were prepped and draped in the usual sterile fashion. An incision was made in the median raphae carried through the right scrotal compartment. The hydrocele fluid was suctioned. The hydrocele sac was excised and was sent to pathology. The testicle itself was found small and dissection was carried in the spermatic cord to expose the vas that was cut between ligature of 2-0 chromic, a lipoma was detected and it was excised. The spermatic vessels were ligated in 2 places with 0 chromic catgut suture and the testicle was sent to pathology. There was a bulging from the neck of the scrotum, which was felt to be more of a spermatic lipoma. There was no weakness in the inguinal floor or the inguinal canal. There were no bowels inside. I could not visualize any hernia sac. I consulted Dr. Mckoy the general surgery that he concurred with the above and recommended to observe and see if he in the future develops any hernia to deal with. At this point, there was no strong evidence to do that. Subjective, the patient to another incision, so I went ahead and closed the dartos with a running 2-0 chromic catgut and the skin was interrupted 4-0 Vicryl. Before closing, the scrotum was drained with a quarter of an inch [place] drain brought through a separate stab wound in the bottom of the scrotum secured in position with 3-0 chromic catgut. A Telfa, fluffs and scrotal support was applied. Needle, sponge, instruments correct x2. Estimated blood loss negligible. The patient tolerated the procedure and anesthesia well and was sent to recovery room in stable condition. Job ID: [id number] DocumentID: [id number] Dictated Date: 06/10/2019 08:23:45 Wheel And Caster Repairer Date: 06/10/2019 13:54:22 Dictated By: DONNELL VARGHESE MD
== END 2019-06-10 11:10 | disposition home or self-care (01) ==
LOC: SDC 05:58
PROVIDERS: ATTEND Urology
DX: N43.3 Hydrocele, unspecified (principal); N45.2 Orchitis; D17.6 Benign lipomatous neoplasm of spermatic cord; N43.40 Spermatocele of epididymis, unspecified; N50.1 Vascular disorders of male genital organs; I10 Essential (primary) hypertension; K21.9 Gastro-esophageal reflux disease without esophagitis; G47.33 Obstructive sleep apnea (adult) (pediatric); G62.9 Polyneuropathy, unspecified; Z86.73 Personal history of transient ischemic attack (TIA), and cerebral infarction without residual deficits; Z99.89 Dependence on other enabling machines and devices; Z85.828 Personal history of other malignant neoplasm of skin; Z79.899 Other long term (current) drug therapy
CPT/HCPCS: 87081; 88302; 88304

== ENCOUNTER → 2019-07-29 | Outpatient (CLI) | payer MEDICARE ==
[~2019-07-29] MED LIST changes: +CEPH-507 PO; +HYDR-3870 PO
--- NOTE | 2019-07-29 10:38 | Diagnostic Imaging Report ---
PROCEDURE: US Gallbladder. TECHNIQUE: Multiple Real-time grayscale images were obtained over the right upper quadrant in various projections. INDICATION: Bloating. FINDINGS: The liver parenchyma appears normal. There is no intra or extrahepatic bile ductal dilatation. A tiny 2 to 3 mm non-shadowing echogenic focus along the gallbladder wall posteriorly may be a tiny non-shadowing stone or tiny polyp. No evidence of acute cholecystitis. The gallbladder is nondilated with its wall non-thickened. The Ovalle's sign is negative. The pancreas itself is largely obscured by gas. No ascites or acute fluid collection is visualized. The unobstructed right kidney is normal. There is no dilatation of intra or extrahepatic bile ducts. The portal venous flow is in the normal hepatopetal direction. IMPRESSION: Probable tiny 2 to 3 mm gallbladder polyp versus stone. No biliary dilatation or acute cholecystitis and no ascites. Dictated by: Dictated on workstation # [id number]
== END ==
LOC: RAD 07:58
PROVIDERS: ATTEND Internal Medicine
DX: R14.0 Abdominal distension (gaseous) (principal)
CPT/HCPCS: 76705

== ENCOUNTER → 2019-08-15 | Outpatient (CLI) | payer MEDICARE ==
[~2019-08-15] MED LIST changes: +CATHETER FLUSH 10 ML SYR IV PRN
--- NOTE | 2019-08-15 10:16 | Diagnostic Imaging Report ---
INDICATION: Bloating. The patient was administered 5.2 mCi technetium 99m Choletec intravenously and imaging over the abdomen was performed. After 60 minutes the patient ingested 1 can of Ensure and a gallbladder ejection fraction was calculated. There is homogeneous uptake of activity by the liver. There is prompt excretion of activity into the common duct and gallbladder. Normal passage of activity into the small bowel is seen. Gallbladder ejection fraction is 95%. IMPRESSION: 1. Patent cystic duct and common bile duct. 2. Gallbladder ejection fraction of 95%. Dictated by: Dictated on workstation # [id number]
== END ==
LOC: CARD 07:33
PROVIDERS: ATTEND Internal Medicine
DX: R14.0 Abdominal distension (gaseous) (principal)
CPT/HCPCS: 78227

== ENCOUNTER → 2019-09-05 | Outpatient (CLI) | payer MEDICARE ==
[~2019-09-05] MED LIST changes: -CATHETER FLUSH 10 ML SYR IV PRN; -METO-370 PO; +METO50TA7 PO
--- NOTE | 2019-09-05 13:00 | Diagnostic Imaging Report ---
PROCEDURE: US Scrotum. TECHNIQUE: Multiple real-time grayscale images were obtained over the scrotum in various projections bilaterally. INDICATION: Right scrotal swelling. FINDINGS: Right testicle is surgically absent. There is a cystic lesion with internal septations in the right hemiscrotum measuring 5.1 x 2.0 x 2.9 cm. No other abnormalities of right hemiscrotum are seen. The left testicle measures 4.9 x 2.3 x 3.6 cm. The left testicle shows homogeneous echotexture. There is normal blood flow to the left testicle. No mass is detected. There is a moderate-sized left hydrocele. Left epididymis is unremarkable. IMPRESSION: 1. No evidence of left testicular mass or vascular compromise. There is a moderate-sized left hydrocele. 2. Complex cystic lesion in the right hemiscrotum, status post right orchiectomy. This may represent resolving hematoma/seroma versus lymphocele. No other abnormality is seen. Dictated by: Dictated on workstation # [id number]
== END ==
LOC: RAD 11:39
PROVIDERS: ATTEND Urology
DX: N43.3 Hydrocele, unspecified (principal); L72.9 Follicular cyst of the skin and subcutaneous tissue, unspecified; Z90.79 Acquired absence of other genital organ(s)
CPT/HCPCS: 76870

== ENCOUNTER → 2019-09-15 | Outpatient (CLI) | payer MEDICARE ==
[~2019-09-15] MED LIST changes: +METO-370 PO; -METO50TA7 PO
--- NOTE | 2019-09-15 09:43 | Diagnostic Imaging Report ---
PROCEDURE: CT pelvis without contrast. TECHNIQUE: Multiple contiguous axial images were obtained through the pelvis without the use of intravenous contrast. Sagittal and coronal reformations were performed. Auto Exposure Controls were utilized during the CT exam to meet ALARA standards for radiation dose reduction. INDICATION: Groin swelling. FINDINGS: There is a fatty right inguinal hernia extending into the scrotal sac. There may be some mild leftward scrotal wall edema and a relatively small left hydrocele but the overall scrotal bulk itself is owing to the right-sided noninflamed fatty hernia. No herniation of viscus. No pelvic fluid collection. The unopacified urinary bladder is nonfocal. The prostate is unremarkable. The bony structures of the pelvis reveal degenerative changes but no acute finding. There are nonaneurysmal aortoiliac atherosclerotic vascular calcifications. IMPRESSION: A fatty right inguinal hernia extends into the right hemiscrotum with some ipsilateral leftward scrotal wall edema and likely a small left sided hydrocele. We note the right testicle itself cannot be visualized and may be absent or atrophic. Dictated by: Dictated on workstation # [id number]
== END ==
LOC: RAD 08:07
PROVIDERS: ATTEND Urology
DX: K40.90 Unilateral inguinal hernia, without obstruction or gangrene, not specified as recurrent (principal); N50.89 Other specified disorders of the male genital organs
CPT/HCPCS: 72192

== ENCOUNTER 2019-10-25 13:04 | Inpatient (IN) | payer MEDICARE ==
[~2019-10-25] VITALS: Ht 177.8 cm; Wt 84.1 kg
[~2019-10-25 13:04] MED LIST changes: -METO-370 PO; +METO50TA7 PO
[2019-10-25 14:34] LABS: BASOPHILS % (AUTO) 0 % (0-10); EOSINOPHILS % (AUTO) 0 % (0-10); HEMATOCRIT 40 % (40-54); HEMOGLOBIN 14.2 G/DL (13.3-17.7); LYMPHOCYTES % (AUTO) 7 % (12-44); MEAN CORPUSCULAR HEMOGLOBIN 32 PG (25-34); MEAN CORPUSCULAR HGB CONC 36 G/DL (32-36); MEAN CORPUSCULAR VOLUME 91 FL (80-99); MEAN PLATELET VOLUME 9.1 FL (7.4-10.4); MONOCYTES # (AUTO) 1.2 X 10^3 (0.0-1.0); MONOCYTES % (AUTO) 9 % (0-12); NEUTROPHILS # (AUTO) 11.4 X 10^3 (1.8-7.8); NEUTROPHILS % (AUTO) 84 % (42-75); PLATELET COUNT 299 10^3/uL (130-400); RED CELL DISTRIBUTION WIDTH 12.7 % (10.0-14.5); WHITE BLOOD COUNT 13.6 10^3/uL (4.3-11.0)
--- NOTE | 2019-10-25 14:47 | ED Abdominal Pain ---
General Stated Complaint: CONSTIPATED History of Present Illness Initial Comments Mr. Blanco is a 74 year-old male presenting to the ED via private vehicle for abdominal pain. Patient states that he has had gradually increasing abdominal pain since 10/19/19. He states that he ate some rich food on 10/19/19 and began having abdominal bloating and cramping. He had continued abdominal pain throughout the week and stopped having bowel movements on 10/22. Since then he has tried taking milk of magnesia twice and a fleet enema; neither worked in giving him bowel movements. He has not passed any gas since 10/23. He endorses nausea and anorexia but he has not vomited. He has a history of BPH but his urinary habits have been stable. (ANGELA JURADO MEDICAL STUDENT) Date Seen by Provider: Oct 25, 2019 Time Seen by Provider: 14:02 (YANE WU MD) Allergies and Home Medications Allergies Coded Allergies: No Known Drug Allergies (Unverified , 06/10/19) Home Medications Amlodipine Besylate 5 Mg Tablet, 5 MG PO DAILY, (Reported) Cephalexin 500 Mg Capsule, 500 MG PO BID Prescribed by: MARYSOL THOMPSON on 06/10/19951 Docusate Sodium 100 Mg Tablet, 100 MG PO DAILY, (Reported) Dutasteride 0.5 Mg Cap, 0.5 MG PO DAILY, (Reported) Glucos Sul 2Kcl/MSM/Chond/C/Mn 1 Each Capsule, 2 EACH PO DAILY, (Reported) Hydrocodone/Acetaminophen 1 Each Tablet, 1-2 EACH PO Q6H PRN for PAIN-MODERATE Prescribed by: MARYSOL THOMPSON on 06/10/19951 Losartan Potassium 100 Mg Tablet, 100 MG PO DAILY, (Reported) Meloxicam 7.5 Mg Tablet, 7.5 MG PO DAILY, (Reported) Metoprolol Succinate 50 Mg Tab.er.24h, 50 MG PO DAILY@1800, (Reported) Om3/Dha/Epa/Cod Liver Oil/A/D3 1 Each Capsule, 1 EACH PO DAILY, (Reported) Patient Home Medication List Home Medication List Reviewed: Yes (YANE WU MD) Review of Systems Review of Systems EENTM: No Symptoms Reported Respiratory: No Symptoms Reported Cardiovascular: No Symptoms Reported Gastrointestinal: Abdomen Distended, Abdominal Pain, Constipated, Nausea, Poor Appetite Genitourinary: Other Psychiatric/Neurological: No Symptoms Reported Endocrine: No Symptoms Reported (ANGELA JURADO MEDICAL STUDENT) Constitutional: no symptoms reported (YANE WU MD) Past Rcmfeyk-Kuucof-Xcvcvk Hx Patient Social History 2nd Hand Smoke Exposure: No Recent Foreign Travel: No Contact w/Someone Who Travel: No Recent Hopitalizations: No (ANGELA JURADO MEDICAL STUDENT) Immunizations Up To Date Tetanus Booster (TDap): Less than 5yrs Date of Pneumonia Vaccine: Jul 08, 2018 Date of Influenza Vaccine: Jul 08, 2018 (ANGELA JURADO MEDICAL STUDENT) Seasonal Allergies Seasonal Allergies: No (ANGELA JURADO MEDICAL STUDENT) Past Medical History Surgeries: Yes (skin cancer, vasectomy x2) Tonsillectomy, Vasectomy Respiratory: Yes Sleep Apnea Currently Using CPAP: No Currently Using BIPAP: No Cardiac: Yes Hypertension Neurological: Yes TIA Sexually Transmitted Disease: No HIV/AIDS: No Genitourinary: Yes Prostate Problems Gastrointestinal: Yes Gastroesophageal Reflux, Chronic Constipation Musculoskeletal: Yes Arthritis Endocrine: No HEENT: Yes ([place] GLASSES) Cancer: Yes Skin Did You Recieve Any Treatments: No What Type of Treatment Did You: Surgical Intervention Psychosocial: No Integumentary: Yes (skin CA) Blood Disorders: No Adverse Reaction/Blood Tranf: No (N/A) (ANGELA JURADO MEDICAL STUDENT) Family Medical History No Pertinent Family Hx (ANGELA JURADO MEDICAL STUDENT) Physical Exam Vital Signs Vital Signs - First Documented 10/25/19 13:51 Temp 36.9 Pulse 67 Resp 18 B/P (MAP) 157/96 (116) Pulse Ox 96 O2 Delivery Room Air (YANE WU MD) Vital Signs Capillary Refill : (ANGELA JURADO MEDICAL STUDENT) Height/Weight/BMI Height: 5'10.00" Weight: 170lbs. 0.0oz. [id number]; 24.4 BMI Method:Stated HEENT: normal ENT inspection, TMs normal Respiratory: lungs clear, normal breath sounds Cardiovascular: regular rate, rhythm, no edema, no JVD Gastrointestinal: distended, tenderness (mild; generalized), other (tympanic ) Genital/Rectal: other (Hydrocele reported) Back: normal inspection, no CVA tenderness Neurologic/Psychiatric: normal mood/affect (ANGELA JURADO MEDICAL STUDENT) General Appearance: WD/WN, no apparent distress (YANE WU MD) Progress/Results/Core Measures Results/Orders Lab Results Laboratory Tests Test 10/25/19 14:20 Range/Units White Blood Count 13.6 H 4.3-11.0 10^3/uL Red Blood Count 4.39 4.35-5.85 10^6/uL Hemoglobin 14.2 13.3-17.7 G/DL Hematocrit 40 40-54 % Mean Corpuscular Volume 91 80-99 FL Mean Corpuscular Hemoglobin 32 25-34 PG Mean Corpuscular Hemoglobin Concent 36 32-36 G/DL Red Cell Distribution Width 12.7 10.0-14.5 % Platelet Count 299 130-400 10^3/uL Mean Platelet Volume 9.1 7.4-10.4 FL Neutrophils (%) (Auto) 84 H 42-75 % Lymphocytes (%) (Auto) 7 L 12-44 % Monocytes (%) (Auto) 9 0-12 % Eosinophils (%) (Auto) 0 0-10 % Basophils (%) (Auto) 0 0-10 % Neutrophils # (Auto) 11.4 H 1.8-7.8 X 10^3 Lymphocytes # (Auto) 1.0 1.0-4.0 X 10^3 Monocytes # (Auto) 1.2 H 0.0-1.0 X 10^3 Eosinophils # (Auto) 0.0 0.0-0.3 10^3/uL Basophils # (Auto) 0.0 0.0-0.1 10^3/uL Neutrophils % (Manual) 80 % Lymphocytes % (Manual) 7 % Monocytes % (Manual) 13 % Blood Morphology Comment NORMAL Sodium Level 127 L 135-145 MMOL/L Potassium Level 3.8 3.6-5.0 MMOL/L Chloride Level 95 L 98-107 MMOL/L Carbon Dioxide Level 20 L 21-32 MMOL/L Anion Gap 12 5-14 MMOL/L Blood Urea Nitrogen 11 7-18 MG/DL Creatinine 0.83 0.60-1.30 MG/DL Estimat Glomerular Filtration Rate > 60 BUN/Creatinine Ratio 13 Glucose Level 133 H 70-105 MG/DL Calcium Level 9.2 8.5-10.1 MG/DL Corrected Calcium 8.5-10.1 MG/DL Total Bilirubin 1.1 H 0.1-1.0 MG/DL Aspartate Amino Transf (AST/SGOT) 24 5-34 U/L Alanine Aminotransferase (ALT/SGPT) 17 0-55 U/L Alkaline Phosphatase 87 40-136 U/L Total Protein 7.0 6.4-8.2 GM/DL Albumin 4.6 H 3.2-4.5 GM/DL (YANE WU MD) My Orders Orders - YANE WU MD Cbc With Automated Diff (10/25/19 14:02) Comprehensive Metabolic Panel (10/25/19 14:02) Ed Iv/Invasive Line Start (10/25/19 14:02) Manual Differential (10/25/19 14:20) Ct Abdomen/Pelvis W (10/25/19 14:57) Iohexol Injection (Omnipaque 350 Mg/Ml 1 (10/25/19 15:15) Received Contrast (Hold Metformin- Contr (10/25/19 15:15) Ns (Ivpb) (Sodium Chloride 0.9% Ivpb Bag (10/25/19 15:15) Ns Iv 1000 Ml (Sodium Chloride 0.9%) (10/25/19 15:09) Ciprofloxacin Iv 400mg/200ml (Cipro Iv S (10/25/19 16:15) (YANE WU MD) Medications Given in ED Current Medications Medications Dose Ordered Sig/Rosa Route Start Time Stop Time Status Last Admin Dose Admin Iohexol 100 ml ONCE ONCE IV 10/25/19 15:15 10/25/19 15:16 DC 10/25/19 15:39 100 ML Sodium Chloride 100 ml ONCE ONCE IV 10/25/19 15:15 10/25/19 15:16 DC 10/25/19 15:39 80 ML (YANE WU MD) Vital Signs/I&O 10/25/19 13:51 Temp 36.9 Pulse 67 Resp 18 B/P (MAP) 157/96 (116) Pulse Ox 96 O2 Delivery Room Air (YANE WU MD) Progress Progress Note : Time: 16:16 Progress Note Sigmoid volvulus was identified by CT scan. This was discussed with Dr. Hoyos, radiologist. Then contacted Dr. Figueroa. He would like symptomatic management with colonoscopy for decompression scheduled in the morning. He also requested antibiotic therapy. Results and plan were communicated to the patient. (YANE WU MD) Diagnostic Imaging Diagonstic Imaging: CT Plain Films/CT/US/NM/MRI: abdomen, pelvis Comments CT abdomen and pelvis viewed by me and report reviewed. See report below: NAME: LIYAH BLANCO [facility] REC#: [id number] PT STATUS: REG ER : 1945 PHYSICIAN: YANE WU MD ADMIT DATE: 10/25/19/ER Draft Date of Exam:10/25/19 CT ABDOMEN/PELVIS W PROCEDURE: CT abdomen and pelvis with contrast. TECHNIQUE: Multiple contiguous axial images were obtained through the abdomen and pelvis after administration of intravenous contrast. Auto Exposure Controls were utilized during the CT exam to meet ALARA standards for radiation dose reduction. INDICATION: Abdominal pain. FINDINGS: The CT pelvis exam of 09/15/2019 failed to show any sign of a pelvic mass or free fluid collection. In the interval since the prior exam however the colon has become markedly distended by fluid and gas secondary to a volvulus involving the sigmoid colon. There is no sign of a pneumoperitoneum and there is no significant free fluid collection identified. The major solid organs of the abdomen and pelvis are similar to the prior exam. The large fat-containing inguinal hernia on the right seen previously is again evident. There does not appear to be any incarceration or obstruction of the bowel by the hernia. The stomach is filled with fluid and consequently difficult to assess. The lung bases show mild atelectasis/infiltrate. The bone windows are unremarkable for a fracture or for a destructive lesion. There is severe degenerative disc and bone disease at L2-L3. IMPRESSION: 1. There is marked distention of much of the colon by gas and fluid secondary to sigmoid volvulus. 2. There is no acute abnormality of the abdomen or pelvis noted otherwise. Dictated on workstation # [id number] Dict: 10/25/19 1541 Trans: 10/25/19 1552 [facility] [id number] Interpreted by: PRANEETH HOYOS MD (YANE WU MD) Departure Communication (Admissions) Time/Spoke to Admitting Phy: 15:50 Dr. Figueroa (YANE WU MD) Impression Primary Impression: Volvulus of sigmoid colon Disposition: ADMITTED INPATIENT Condition: Stable Admissions Decision to Admit Reason: Admit from ER (General) Decision to Admit/Date: Oct 25, 2019 Time/Decision to Admit Time: 16:00 (YANE WU MD) Departure-Patient Inst. Referrals: SHANICE WRIGHT DO (PCP/Family) Primary Care Physician I have personally interviewed and examined this patient along with Angela Jurado MS4. I agree with his history, physical, assessment, and documentation with the following additions and corrections. This 74-year-old gentleman presents with abdominal pain, distention, and no bowel movement or flatus for several days. He has had similar episodes in the past that were more mild and self resolving. His abdomen is markedly distended and tympanic to percussion. Exam: Gen.: Alert, oriented, no acute distress HEENT: Normocephalic and atraumatic, mucous membranes moist Heart: Regular rate and rhythm without murmur Lungs: Clear to auscultation bilaterally Abdomen: Tightly distended, tympanic to percussion, mildly tender to palpation diffusely, bowel sounds faint but present. Extremities: Normal to inspection, no edema Skin: Warm and dry without rashes Neuropsych: Alert, oriented, no focal deficits CT revealed sigmoid volvulus. Case was discussed with Dr. Figueroa who plans colonoscopy in the morning. Management until then was discussed with Dr. Figueroa and orders were written. (YANE WU MD) ANEGLA JURADO MEDICAL STUDENT Oct 25, 2019 14:47 YANE WU MD Oct 25, 2019 16:18
[2019-10-25 14:56] LABS: ALANINE AMINOTRANSFERASE 17 U/L (0-55); ALBUMIN 4.6 GM/DL (3.2-4.5); ALKALINE PHOSPHATASE 87 U/L (40-136); BILIRUBIN,TOTAL 1.1 MG/DL (0.1-1.0); BUN/CREATININE RATIO 13; CALCIUM 9.2 MG/DL (8.5-10.1); CARBON DIOXIDE 20 MMOL/L (21-32); CHLORIDE 95 MMOL/L (98-107); CREATININE SERUM 0.83 MG/DL (0.60-1.30); GFR ESTIMATED > 60; GLUCOSE 133 MG/DL (70-105); POTASSIUM 3.8 MMOL/L (3.6-5.0); SODIUM 127 MMOL/L (135-145)
[2019-10-25 15:06] LABS: LYMPHOCYTES % (MANUAL) 7 %; MONOCYTES % (MANUAL) 13 %; NEUTROPHILS % (MANUAL) 80 %; RBC MORPH NORMAL
[2019-10-25] MEDS ORDERED: NS IV 1000 ML 1,000 ML IV ONE (15:09)
[2019-10-25] MEDS ORDERED: HOLD METFORMIN - RECEIVED CONTRAST 20 ML VIAL IV SCH (15:15)
[2019-10-25] MEDS ORDERED: NS 100 ML (IVPB) BAG IV ONE (15:15)
[2019-10-25] MEDS ORDERED: IOHEXOL 350 MG/ML 100 ML (OMNIPAQUE 350) VIAL IV ONE (15:15)
--- NOTE | 2019-10-25 15:53 | Diagnostic Imaging Report ---
PROCEDURE: CT abdomen and pelvis with contrast. TECHNIQUE: Multiple contiguous axial images were obtained through the abdomen and pelvis after administration of intravenous contrast. Auto Exposure Controls were utilized during the CT exam to meet ALARA standards for radiation dose reduction. INDICATION: Abdominal pain. FINDINGS: The CT pelvis exam of 09/15/2019 failed to show any sign of a pelvic mass or free fluid collection. In the interval since the prior exam however the colon has become markedly distended by fluid and gas secondary to a volvulus involving the sigmoid colon. There is no sign of a pneumoperitoneum and there is no significant free fluid collection identified. The major solid organs of the abdomen and pelvis are similar to the prior exam. The large fat-containing inguinal hernia on the right seen previously is again evident. There does not appear to be any incarceration or obstruction of the bowel by the hernia. The stomach is filled with fluid and consequently difficult to assess. The lung bases show mild atelectasis/infiltrate. The bone windows are unremarkable for a fracture or for a destructive lesion. There is severe degenerative disc and bone disease at L2-L3. IMPRESSION: 1. There is marked distention of much of the colon by gas and fluid secondary to sigmoid volvulus. 2. There is no acute abnormality of the abdomen or pelvis noted otherwise. 3. These results were discussed with Dr. Escamilla at the time of this dictation. CRITICAL FINDING Dictated by: Dictated on workstation # [id number]
[2019-10-25] MEDS ORDERED: CIPROFLOXACIN IV 400MG/200ML 200 ML IV ONE (16:15)
[2019-10-25] MEDS ORDERED: HURRICAINE EXT TUBE (BENZOCAINE) ONE (17:20)
--- NOTE | 2019-10-25 17:21 | HISTORY AND PHYSICAL ---
DATE OF SERVICE: ATTENDING PRIMARY CARE PHYSICIAN: Dr. Daniel Cruz. HISTORY OF PRESENT ILLNESS: The patient is a 74-year-old male known to us. We have seen in the past for other issues. He has had crampy abdominal pain for several years. We had done a colonoscopy on him in 03/2019, which did not show any major abnormalities, only hemorrhoids and diverticulosis. Again, he states that he does have intermittent episodes of abdominal cramping, which has been going on for several years. He presented to the Emergency Department with worsening abdominal bloating and cramping. He also does have some nausea; however, no vomiting. A CT scan was performed, which did show dilated loops of colon, especially the sigmoid colon, which may indicate some level of sigmoid volvulus. He is otherwise doing okay. His pain is tolerable. He does have a distended abdomen; however, he does not have any peritoneal signs. Again, he reports that the majority of these recurrent symptoms resolved on its own. PAST MEDICAL HISTORY: Chronic constipation, chronic crampy abdominal pain and distension, gastroesophageal reflux disease, hypertension. PAST SURGICAL HISTORY: Vasectomy. ALLERGIES: No known drug allergies. MEDICATIONS: Amlodipine 5 mg daily, cephalexin 500 mg b.i.d., Colace 100 mg daily, dutasteride 0.5 mg daily, hydrocodone p.r.n., losartan 100 mg daily, meloxicam 7.5 mg daily, metoprolol 50 mg daily. SOCIAL HISTORY: Negative smoke, negative alcohol. FAMILY HISTORY: Noncontributory. VITAL SIGNS: Temperature 36.9, blood pressure 157/96, pulse 67, respirations 18, pulse ox 96% on room air. REVIEW OF SYSTEMS: A well-nourished male, currently somewhat guarded secondary to the abdominal distention. He does not have any peritoneal signs at this time. He is also nauseous. He is not experiencing any shortness of breath or difficulty breathing. No chest pain, palpitations, diaphoresis. Intermittent nausea, no vomiting. He states that his last episode of flatus was approximately 24 hours ago and his last bowel movement was one day previous. No red blood per rectum, no dark tarry stools. No fever, chills, no recent inadvertent weight loss. All other review of systems negative. PHYSICAL EXAMINATION: CHEST: Clear. Good breath sounds bilaterally. HEART: Regular, no murmurs. EXTREMITIES: No lower extremity edema, negative Homans sign. HEENT: No scleral icterus. NECK: No cervical lymphadenopathy. ABDOMEN: Distended, soft, mild discomfort globally; however, there is no focal tenderness or peritoneal signs. SKIN: Warm, dry. LABORATORY DATA: WBC 13.6, hemoglobin 14.2, hematocrit 40, platelets 299. BUN 11, creatinine 0.83. ASSESSMENT AND PLAN: A 74-year-old male with a history of recurrent episodes of crampy abdominal pain, which may indicate a redundant sigmoid colon and intermittent episodes of volvulus. At this time, it appears that he again has potentially a sigmoid volvulus based on the CT scan. We will admit him, hydrate him and proceed with adequate pain control and antibiotics and then proceed with a colonoscopy decompression as well as placement of a rectal tube. Once this is established and he was decompressed, we will then proceed with colonic preparation and hopefully one stage laparoscopic sigmoid colon resection and anastomosis. Job ID: [id number] DocumentID: [id number] Dictated Date: 10/25/2019 16:48:22 Field Kiln Burner Date: 10/25/2019 17:19:42 Dictated By: SHUN WEINER MD
--- NOTE | 2019-10-25 18:00 | NUR ---
LIYAH MORATAYA admitted to room 420-1, with an admitting diagnosis of ABD PAIN, on 10/25/19 from ER via [facility], accompanied by ER STAFF.LIYAH MORATAYA introduced to surroundings, call light, bed controls, phone, TV, temperature control, lights, meal times, smoking policy, visitor policy, side rail policy, bathrooms and showers. Patient Rights given to patient in the handbook. LIYAH MORATAYA verbalizes understanding that [facility] is not responsible for the loss or damage to any personal effects or valuables that are kept in the patients posession during their hospitalization. The following Patient Care Plans were discussed with the PT: Discharge Planning,PAIN, AND [place] VOL DEFICIT. LIYAH MORATAYA verbalizes understanding of Interdisciplinary Patient Education. Patient and/or family were informed about the Rapid Response Team and its purpose.
[2019-10-25] MEDS ORDERED: metroNIDAZOLE 500MG/100ML IVPB 100 ML ONE (18:03)
[2019-10-25] MEDS ORDERED: D5 NS W/KCL 20 MEQ/L 1,000 ML IV ONE (18:03)
[2019-10-25 18:30] VITALS: BP 147/75
[2019-10-25] MEDS ORDERED: ONDANSETRON 4 MG/2 ML (SDV) Z0FRAN IVP PRN (19:45)
[2019-10-25 20:26] VITALS: BP 155/80
[2019-10-25] MEDS: D5 NS W/KCL 20 MEQ/L 1,000 ML IV SCH (21:01)
[2019-10-25] MEDS: FAMOTIDINE 20MG/2ML IV (PEPCID) IVP SCH (21:07)
--- NOTE | 2019-10-25 22:50 | NUR ---
DR WEINER NOTIFIED THAT PT APPEARS ANXIOUS AND THINKS THAT HIS NG TUBE IS NOT SUCTIONING STOMACH CONTENTS FAST ENOUGH AND THAT HIS ABD IS MORE DISTENDED. THIS RN RE ASSESSED PT AND ABD APPEARED TO BE THE SAME SIZE EARLIER IN THE SHIFT. THIS NURSE SIGNAL OPERATOR REASSURED PT THAT THE NG TUBE WAS SUCTIONING AND THERE WAS STOMACH CONTENTS IN TUBE AND CANISTER. I CHECKED THE SUCTION AND IT IS WORKING APPROP. AND ON LOW SETTING PER DR WEINER'S ORDERS. WHEN DR WEINER WAS CALLED BY THIS NURSE SIGNAL OPERATOR, DR REPORTED THAT THIS PT HAS A LOT ANXIETY AND ORDERED ATIVAN Q 6 H PRN ANXIETY. PT MADE AWARE THAT WAS NOTIFIED AND WHAT MEDICATION HE ORDERED. HE AGREED TO HAVE THE IV ATIVAN ADMINISTERED. WILL CONTINUE TO MONITOR.
[2019-10-25] MEDS ORDERED: LORazepam INJ 2 MG/ML (ATIVAN) VIAL IVP PRN (23:00)
[2019-10-25 23:20] VITALS: BP 160/82
[2019-10-26] VITALS (25 sets, daily range): BP systolic 121–165; BP diastolic 66–91
--- NOTE | 2019-10-26 00:38 | Conscious Sedation/ASA ---
Conscious Sedation Pre-Proced Time 00:38 ASA Score 2 For ASA 3 and 4: Consider anesthesia and medical clearance. Also, for patients with a history of failed moderate sedation consider anesthesia. Airway Lungs Heart ASA score ASA 1: a normal healthy patient ASA 2: a patient with a mild systemic disease (mid diabetes, controlled hypertension, obesity ASA 3: a patient with a severe systemic disease that limits activity (angina, COPD, prior Myocardial infarction) ASA 4: a patient with an incapacitating disease that is a constant threat to life (CHF, renal failure) ASA 5: a moribund patient not expected to survive 24 hrs. (ruptured aneurysm) ASA 6: a declared brain- patient whose organs are being harvested. For emergent operations, add the letter E after the classification Mallampati Classification Grade 2 Sedation Plan Analgesia, Amnesia, Plan communicated to team members, Discussed options with patient/fam, Discussed risks with patient/fam The patient is an appropriate candidate to undergo the planned procedure, sedation, and anesthesia. The patient immediately re-assessed prior to indication. SHUN WEINER MD Oct 26, 2019 00:38
--- NOTE | 2019-10-26 00:39 | Progress Note-Pre Operative ---
Pre-Operative Progress Note H&P Reviewed The H&P was reviewed, patient examined and no changes noted. Date Seen by Provider: Oct 26, 2019 Time Seen by Provider: 00:38 Date H&P Reviewed: Oct 26, 2019 Time H&P Reviewed: 00:38 Pre-Operative Diagnosis: sigmoid volvulus SHUN WEINER MD Oct 26, 2019 00:39
[2019-10-26] MEDS: metroNIDAZOLE 500MG/100ML IVPB 100 ML IV SCH ×3 (02:33→16:45)
[2019-10-26] MEDS: CIPROFLOXACIN IV 400MG/200ML 200 ML IV SCH ×2 (03:34→15:18)
[2019-10-26] MEDS: D5 NS W/KCL 20 MEQ/L 1,000 ML IV SCH ×2 (04:35→16:45)
[2019-10-26 05:44] LABS: HEMOGLOBIN 13.2 G/DL (13.3-17.7); MEAN PLATELET VOLUME 9.4 FL (7.4-10.4); RED CELL DISTRIBUTION WIDTH 12.6 % (10.0-14.5)
[2019-10-26 06:06] LABS: ALANINE AMINOTRANSFERASE 15 U/L (0-55); ALBUMIN 3.8 GM/DL (3.2-4.5); ALKALINE PHOSPHATASE 69 U/L (40-136); BILIRUBIN,TOTAL 0.8 MG/DL (0.1-1.0); BUN/CREATININE RATIO 13; CALCIUM 8.4 MG/DL (8.5-10.1); CARBON DIOXIDE 18 MMOL/L (21-32); CHLORIDE 100 MMOL/L (98-107); CREATININE SERUM 0.77 MG/DL (0.60-1.30); GFR ESTIMATED > 60; GLUCOSE 164 MG/DL (70-105); SODIUM 129 MMOL/L (135-145); TOTAL PROTEIN 6.2 GM/DL (6.4-8.2)
[2019-10-26] MEDS: FAMOTIDINE 20MG/2ML IV (PEPCID) IVP SCH ×2 (08:24→21:09)
--- NOTE | 2019-10-26 09:15 | NUR ---
TO ENDO PER WC.
[2019-10-26] MEDS ORDERED: NS IV 500 ML 500 ML ONE (09:25)
[2019-10-26] MEDS ORDERED: MIDAZOLAM 5 MG/5 ML (VERSED) VIAL ONE ×2 (09:28→10:40)
[2019-10-26] MEDS ORDERED: fentaNYL INJECTION 100 MCG/2 ML AMP ONE (09:28)
[2019-10-26] MEDS ORDERED: LIDOCAINE JELLY 2% 6 ML SYRINGE ONE (09:28)
[2019-10-26] MEDS: fentaNYL INJECTION 100 MCG/2 ML AMP IVP PRN ×2 (09:37→09:55)
[2019-10-26] MEDS: MIDAZOLAM 5 MG/5 ML (VERSED) VIAL IV PRN ×3 (09:39→10:40)
[2019-10-26] MEDS ORDERED: NS IV 500 ML 500 ML IV PRN (09:51)
[2019-10-26] MEDS ORDERED: LIDOCAINE JELLY 2% 6 ML SYRINGE MM PRN (10:00)
[2019-10-26] MEDS ORDERED: fentaNYL INJECTION 100 MCG/2 ML AMP IVP ONE (10:00)
--- NOTE | 2019-10-26 11:40 | NUR ---
RET'D PER WC FROM ENDO. ALERT, LETHARGIC DENIES C/O. ABD LESS DISTENDED.
--- NOTE | 2019-10-26 12:39 | OPERATIVE REPORT ---
DATE OF SERVICE: 10/26/2019 ATTENDING PHYSICIAN: Daniel Cruz DO PREOPERATIVE DIAGNOSIS: Sigmoid volvulus. POSTOPERATIVE DIAGNOSIS: Sigmoid volvulus with no ischemic changes. PROCEDURE: Colonoscopy with decompression. SURGEON: Shun Weiner MD ANESTHESIA: Conscious sedation. ESTIMATED BLOOD LOSS: Minimal. FINDINGS: Dilated redundant sigmoid colon with copious liquid stools throughout the sigmoid and descending colon. The remainder of the colon was normal. There were no ischemic changes identified. DISPOSITION: The patient tolerated the procedure well. INDICATIONS: The patient is a 74-year-old male known to us. We have seen him before in the past for a colonoscopy. This was done in 03/2019. He was found to have chronic external and internal hemorrhoids as well as mild sigmoid diverticulosis; however, no other abnormalities identified. He had reported before that he has had multiple episodes of abdominal distention and crampy pain on an intermittent basis for years; however, has become more frequent in the past year and states that he has probably had 5 to 7 episodes with this admission being the worst with significant abdominal distention and nausea and obstipation. A CT scan was performed, which did show a significant dilatation of the sigmoid colon towards the right upper abdominal quadrant consistent with a sigmoid volvulus. DESCRIPTION OF PROCEDURE: The patient was brought to the endoscopy suite, laid in the left lateral decubitus position. After adequate IV pain and sedative medications and conscious sedation anesthesia, digital rectal examination was performed. Chronic stage II external and internal hemorrhoids were identified, which were not actively edematous nor inflamed and no bleeding. Normal sphincter tone was felt and there were no palpable masses. The endoscope was then intubated to the anus and rectum gently insufflated. The endoscope was then advanced through the valves of Martinez of the rectum with no polyps or any neoplasms identified. Through the sigmoid colon, we were able to get through the area of torsion where there was a significant amount of dilatation as well as liquid stools. This was irrigated and suctioned as well as possible. We then proceeded through the descending colon and transverse colon where again copious amounts of air as well as liquid stools were identified. The remainder of the ascending colon and the cecum appeared normal. There was mild mucosal irritation of the sigmoid colonic mucosa; however, there were no signs of ischemia throughout the colon or rectum. The endoscope was then slowly withdrawn while taking a second look and suctioning of residual air with no additional findings. The patient tolerated the procedure well. He does have what appears to be a chronic sigmoid volvulus with a more acute and severe episode on this admission. We will recommend at some point that he proceed with a sigmoid colon resection and if he wants to proceed with this procedure on this admission, we will proceed with bowel prep and keep him on a clear liquid diet, keep his stools soft with laxative as well as a add a prokinetic like Reglan to promote increased motility. Job ID: [id number] DocumentID: [id number] Dictated Date: 10/26/2019 11:08:27 Bandage Wrapping Machine Operator Date: 10/26/2019 12:38:49 Dictated By: SHUN WEINER MD
--- NOTE | 2019-10-26 13:18 | Progress Note-Post Operative ---
Post-Operative Progess Note Surgeon (s)/Locomotive Crane Engineer (s) Surgeon SHUN WEINER MD Locomotive Crane Engineer: none Pre-Operative Diagnosis sigmoid volvulus Post-Operative Diagnosis same, no ischemia, no tumors Procedure & Operative Findings Date of Procedure 10/26/19 Procedure Performed/Findings colonoscopy with decompression Anesthesia Type cs Estimated Blood Loss Estimated blood loss (mL): minimal Specimens/Packing Specimens Removed none SHUN WEINER MD Oct 26, 2019 13:18
--- NOTE | 2019-10-26 13:44 | NUR ---
NG REMOVED. UP TO BSC AND HAVING BM.
--- NOTE | 2019-10-26 14:20 | NUR ---
this RN took over patient care at this time. patient alert and orientated, verbalizes no other needs at this time
[2019-10-26] MEDS: METOCLOPRAMIDE INJ 10 MG/2 ML (REGLAN) IVP SCH (16:45)
--- NOTE | 2019-10-26 18:43 | NUR ---
patients brought medications in pill organizer for patient to take. This RN put medications in patient lock box
[2019-10-27] MEDS: METOCLOPRAMIDE INJ 10 MG/2 ML (REGLAN) IVP SCH ×4 (00:11→17:49)
[2019-10-27 00:23] VITALS: BP 144/82
[2019-10-27] MEDS: CIPROFLOXACIN IV 400MG/200ML 200 ML IV SCH ×2 (02:06→16:10)
[2019-10-27] MEDS: D5 NS W/KCL 20 MEQ/L 1,000 ML IV SCH ×2 (02:06→12:17)
[2019-10-27] MEDS: metroNIDAZOLE 500MG/100ML IVPB 100 ML IV SCH ×3 (03:00→17:49)
[2019-10-27 04:58] VITALS: BP 128/69
[2019-10-27 07:50] VITALS: BP 130/75
[2019-10-27] MEDS: FAMOTIDINE 20MG/2ML IV (PEPCID) IVP SCH (09:12)
[2019-10-27 12:00] VITALS: BP 151/79
--- NOTE | 2019-10-27 12:37 | NUR ---
SPOKE WITH THE PT WELL GOING THRU THE EXT MED HISTORY AND CALLING [facility] TO COMPLETE THE MED REC. PT WAS ABLE TO TELL ME HOW/WHEN HE TAKES EACH MEDICATION (PT HAS A MED LIST WITH HIM) HIS 3 BLOOD PRESSURE MEDS SHOW UP ON THE EXT MED HISTORY. AVODART AND MELOXICAM: PT SAYS HE GETS THESE FROM [facility] THEREFORE I DO NOT HAVE A FILL DATE. OTC MEDS: COD LIVER OIL DOCUSATE GLUCOSAMINE ASPIRIN PT ALSO STATES HE TAKES BEE POLLEN POWDER (5 GRAMS) ALONG WITH TOMATO JUICE IN THE MORNING AND OLIVE OIL (15 GRAMS) WITH APPLE, ORANGE OR CRANBERRY JUICE IN THE AFTERNOON.
[2019-10-27] MEDS ORDERED: ASPI-983 PO (12:42)
--- NOTE | 2019-10-27 13:15 | NUR ---
Pt is Religion. Junior Java Developer provided prayer and Communion.
[2019-10-27 16:00] VITALS: BP 159/80
--- NOTE | 2019-10-27 18:11 | Progress Note ---
Subjective Date Seen by a Provider: Oct 27, 2019 Time Seen by a Provider: 17:00 Subjective/Events-last exam doing well. having multiple bowel movements. no abd distention. tolerating clears. Objective Exam Vital Signs Date Time Temp Pulse Resp B/P (MAP) Pulse Ox O2 Delivery O2 Flow Rate FiO2 10/27/19 16:00 36.9 84 20 159/80 (106) 98 Room Air 10/27/19 12:00 36.8 83 18 151/79 (103) 99 Room Air 10/27/19 09:00 96 Room Air 10/27/19 07:50 36.4 77 18 130/75 (93) 96 Room Air 10/27/19 04:58 36.2 75 18 128/69 (88) 95 Room Air 10/27/19 00:23 36.8 96 22 144/82 (102) 93 Room Air 10/26/19 21:00 Room Air 10/26/19 20:00 36.7 87 18 142/67 (92) 96 Room Air I & O 10/27/19 07:00 Intake Total 2920 ml Output Total 950 ml Balance 1970 ml Capillary Refill : Less Than 3 SecondsLess Than 3 Seconds General Appearance: No Apparent Distress HEENT: PERRL/EOMI Neck: Full Range of Motion Respiratory: Chest Non Tender, Lungs Clear, Normal Breath Sounds Cardiovascular: Regular Rate, Rhythm Gastrointestinal: normal bowel sounds, non tender, soft Extremity: Normal Capillary Refill Neurologic/Psychiatric: Alert, Oriented x3 Skin: Normal Color Lymphatic: No Adenopathy Assessment/Plan Assessment/Plan Assess & Plan/Chief Complaint 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 low residue diet. natural hx/disease process explained to pt in depth and that he will need sigmoid colon resection sooner than later. patient understands however has a with needs. he states he will f/u in office soon and schedule surg. for now we will recommend a low residue diet and avoid gas forming foods. Clinical Quality Measures DVT/VTE Risk/Contraindication: Risk Factor Score Per Nursin RFS Level Per Nursing on Admit: 4+=Very High SHUN WEINER MD Oct 27, 2019 18:10
--- NOTE | 2019-10-27 18:13 | Discharge Inst-Surgical ---
D/C Lap Instructions-REGINE Follow Up Appt in 2-6 weeks Activity as tolerated Low residue diet. avoid lower GI gas forming foods. Avoid Alcohol, Caffeine, Spicy [place] and Acid foods. Drink 64 fluid oz or more of fluids per day. Symptoms to Report: Fever over 101 degree F, Nausea/Vomiting If any problems/questions: Contact your physician or go to Emergency Room SHUN WEINER MD Oct 27, 2019 18:13
[2019-10-27 19:37] VITALS: BP 159/80
== END 2019-10-27 19:39 | disposition home or self-care (01) | DRG 346 ==
LOC: EDUNIT# 13:04 → ER 13:05 → 4TH 16:12
PROVIDERS: ADMIT Surgery; ATTEND Surgery
PROC: 0D9E8ZZ Drainage of Large Intestine, Via Natural or Artificial Opening Endoscopic (ICD-10-PCS; principal; 2019-10-26 09:30)
DX: K56.2 Volvulus (principal); K64.1 Second degree hemorrhoids; N40.0 Benign prostatic hyperplasia without lower urinary tract symptoms; G47.30 Sleep apnea, unspecified; I10 Essential (primary) hypertension; K21.9 Gastro-esophageal reflux disease without esophagitis; K59.09 Other constipation; M19.91 Primary osteoarthritis, unspecified site; N43.3 Hydrocele, unspecified; Z86.73 Personal history of transient ischemic attack (TIA), and cerebral infarction without residual deficits; Z90.89 Acquired absence of other organs; Z98.52 Vasectomy status
CPT/HCPCS: 36415; 74177; 80053; 85007; 85027

== ENCOUNTER 2019-11-19 08:06 | Outpatient (CLI) | payer MEDICARE ==
[~2019-11-19] VITALS: Ht 177 cm; Wt 78.1 kg
[2019-11-19] MEDS ORDERED: BEET PO (08:25)
[2019-11-19] MEDS ORDERED: [UNRECOGNIZED DRUG - CODE] PO (08:25)
[2019-11-19 08:27] VITALS: BP 151/82
[2019-11-19] MEDS ORDERED: ceFAZolin 2 GM/50 ML NS 50 ML IV ONE (09:30)
[2019-11-20] MEDS ORDERED: HYDR-34 PO (11:15)
== END 2019-11-19 09:36 | disposition home or self-care (01) ==
LOC: PREOP 08:06
PROVIDERS: ATTEND Surgery
DX: Z01.818 Encounter for other preprocedural examination (principal)
CPT/HCPCS: 87081

== ENCOUNTER → 2019-11-28 | Outpatient (CLI) | payer MEDICARE ==
[~2019-11-28] MED LIST changes: +BEET PO; +HYDR-34 PO; +[UNRECOGNIZED DRUG - CODE] PO
--- NOTE | 2019-11-28 13:51 | Diagnostic Imaging Report ---
INDICATION: Abdominal distention. COMPARISON: October 25, 2019. TECHNIQUE: Two radiographs of the abdomen are obtained dated November 28, 2019. FINDINGS: Tubing/catheter is noted overlying the left abdomen. Stable elevation of the left hemidiaphragm. The right lung base is clear. Extensive gaseous distention of the stomach as well as multiple loops of large and small bowel are noted. Chain sutures are noted overlying the midline pelvis. Gas is noted within the rectal vault. Evaluation for free air is significantly limited secondary to extensive gaseous distention of the bowel. [place] left curvature of the spine with scattered osseous degenerative changes. No acute osseous abnormality. IMPRESSION: Extensive gaseous distention of the bowel, including the stomach. This could relate to a distal bowel obstruction. Alternatively, this could relate to ileus. Recommend clinical correlation. CT of the abdomen and pelvis could be obtained for further evaluation if there is clinical concern for underlying bowel obstruction. Report given & faxed to Dr. Figueroa's office at 1:50 p.m. 11/28/2019/cb Dictated by: Dictated on workstation # [id number]
== END ==
LOC: RAD 11:37
PROVIDERS: ATTEND Surgery
DX: R14.0 Abdominal distension (gaseous) (principal); R11.2 Nausea with vomiting, unspecified
CPT/HCPCS: 74018

== ENCOUNTER → 2019-12-12 | Outpatient (CLI) | payer MEDICARE ==
[~2019-12-12] MED LIST changes: +BARIUM for suspension 96% w/w (Vanilla Silq Medium Density) PO ONE; +BARIUM for suspension 98% w/w (Vanilla Silq High Density) PO ONE
--- NOTE | 2019-12-12 14:37 | Diagnostic Imaging Report ---
INDICATION: Abdominal pain and distention. TIME OF EXAM: 7:23 a.m. FINDINGS: Box Stacker radiograph of the abdomen does show moderate gaseous distention of small and large bowel loops throughout the abdomen. No wall thickening or pneumatosis is identified. IMPRESSION: Gaseous distention of small and large bowel loops. Patient is scheduled to undergo upper GI and small bowel follow-through. Dictated by: Dictated on workstation # [id number]
--- NOTE | 2019-12-12 14:55 | Diagnostic Imaging Report ---
INDICATION: Abdominal distention. Patient is status post partial colon resection in November. TECHNIQUE: Patient ingested thin and thick barium and serial radiography of the abdomen was performed. FINDINGS: A small bowel study was carried out to 4.5 hours. Contrast does reach the colon at that time. Visualized small bowel loops do not appear to be appreciably dilated. Transit time may be owing to ileus. No definite obstructing lesion is seen. There is some gaseous distention to the stomach. A mucosal fold pattern of the small bowel is unremarkable. IMPRESSION: No evidence of small bowel obstruction. There is somewhat prolonged transit through the small bowel, perhaps owing to ileus. Dictated by: Dictated on workstation # [id number]
--- NOTE | 2019-12-12 14:57 | Diagnostic Imaging Report ---
INDICATION: Abdominal pain and distention. Patient is status post recent partial colon resection. TECHNIQUE: The patient ingested effervescent crystals as well as thin and thick barium and imaging over the esophagus, stomach, and proximal small bowel was performed. FINDINGS: The esophagus has a fairly smooth contour. There is some distention to the esophagus. No mass or stricture is seen. There is free flow of barium into the stomach. No definite gastroesophageal reflux or hiatal hernia is demonstrated. Evaluation of the stomach is somewhat compromised due to poor coating of the stomach. There is prompt emptying into the small bowel. The proximal small bowel loops are unremarkable. IMPRESSION: Unremarkable upper GI exam. Dictated by: Dictated on workstation # [id number]
== END ==
LOC: RAD 07:31
PROVIDERS: ATTEND Surgery
DX: R10.9 Unspecified abdominal pain (principal); R11.2 Nausea with vomiting, unspecified; R14.0 Abdominal distension (gaseous); Z90.49 Acquired absence of other specified parts of digestive tract
CPT/HCPCS: 74018; 74246; 74248

== ENCOUNTER → 2020-10-25 | Outpatient (CLI) | payer MEDICARE ==
[~2020-10-25] MED LIST changes: +AMLO-250 PO; -AMLO5TAB9 PO; +ASPI-1238 PO; -ASPI-983 PO; -BARIUM for suspension 96% w/w (Vanilla Silq Medium Density) PO ONE; -BARIUM for suspension 98% w/w (Vanilla Silq High Density) PO ONE
== END ==
LOC: CARD 13:00
PROVIDERS: ATTEND Internal Medicine Cardiovascular Disease
DX: I51.7 Cardiomegaly (principal); R94.31 Abnormal electrocardiogram [ECG] [EKG]
CPT/HCPCS: 93306

== ENCOUNTER → 2020-10-27 | Outpatient (CLI) | payer MEDICARE ==
[~2020-10-27] VITALS: Ht 177 cm; Wt 81.0 kg
[~2020-10-27] MED LIST changes: +CATHETER FLUSH 10 ML SYR IV PRN; +REGADENOSON 0.4 MG/5 ML SYR (LEXISCAN) IV ONE
[2020-10-27 09:27] VITALS: BP 125/63
--- NOTE | 2020-10-27 12:46 | Cardiology Stress Test Report ---
Stress Test Report Date of Procedure/Referring: Date of Procedure: Oct 27, 2020 PCP Sarah Galarza MD Admitting Physician Daniel Cruz DO Indications: Abnormal EKG Baseline Heart Rate: 81 Baseline Blood Pressure: Blood Pressure Systolic: 125 Blood Pressure Diastolic: 63 Baseline Vitals Vital Signs Date Time Temp Pulse Resp B/P (MAP) Pulse Ox O2 Delivery O2 Flow Rate FiO2 10/27/20 09:27 81 125/63 (83) 99 Room Air Baseline EKG: Baseline EKG: normal sinus rhythm Summary After explaining the procedure to the patient, he signed a consent and then brought to the stress nuclear laboratory. Patient received 0.4 mg Lexiscan for stress test, ECG, heart rate and blood pressure were monitored continuously. Resting and stress dose of radio tracer were injected, imaging was acquired and reviewed in short axis, horizontal long axis and vertical long axis views. TID: 1.13 SSS: 9 SDS: 4 EF: 68 1. Patient tolerated Lexiscan well 2. Diaphragmatic attenuation with decreased uptake involving the inferior wall and inferolateral. Mild reversibility 3. Normal left ventricular size, EF 68 percent SARAH GALARZA MD Oct 27, 2020 12:46
== END ==
LOC: CARD 08:30
PROVIDERS: ATTEND Internal Medicine Cardiovascular Disease
DX: R94.31 Abnormal electrocardiogram [ECG] [EKG] (principal)
CPT/HCPCS: 78452; 93017; A9502

== ENCOUNTER 2020-11-03 10:00 | Day surgery (SDC) | payer MEDICARE ==
[~2020-11-03] VITALS: Ht 180.3 cm; Wt 81.8 kg
[2020-11-03] VITALS (9 sets, daily range): BP systolic 103–173; BP diastolic 58–89
--- NOTE | 2020-11-03 08:43 | Diagnostic Imaging Report ---
INDICATION: History of hypertension, sleep apnea, hyperlipidemia, abnormal stress test. Evaluation prior to heart catheterization.. TECHNIQUE: Single view chest 8:30 AM. CORRELATION STUDY: 11/20/2019 FINDINGS: Heart size and mediastinum generally stable. Moderate calcification of the aortic arch. Lung de leon are slightly hyperinflated. However no consolidating infiltrate. Slight blunting at the costophrenic angles favoring probable trace pleural effusions versus pleural thickening. IMPRESSION: 1. Chronic appearing changes about the lung parenchyma. There may be trace pleural effusions versus pleural thickening present. Dictated by: Dictated on workstation # [id number]
[2020-11-03 08:44] LABS: HEMOGLOBIN 13.7 g/dL (13.3-17.7); MEAN PLATELET VOLUME 8.9 fL (9.0-12.2); WHITE BLOOD COUNT 7.1 10^3/uL (4.3-11.0)
[2020-11-03 08:51] LABS: INR 1.1 (0.8-1.4); PROTHROMBIN TIME PATIENT 14.5 SEC (12.2-14.7)
[2020-11-03 08:57] LABS: ALANINE AMINOTRANSFERASE 14 U/L (0-55); ALBUMIN 4.5 GM/DL (3.2-4.5); ALKALINE PHOSPHATASE 71 U/L (40-136); BILIRUBIN,TOTAL 0.6 MG/DL (0.1-1.0); BUN/CREATININE RATIO 21; CALCIUM 9.5 MG/DL (8.5-10.1); CARBON DIOXIDE 18 MMOL/L (21-32); CHLORIDE 110 MMOL/L (98-107); CHOLESTEROL 178 MG/DL (< 200); CREATININE SERUM 0.96 MG/DL (0.60-1.30); GFR ESTIMATED > 60; GLUCOSE 112 MG/DL (70-105); HDL CHOLESTEROL 48 MG/DL (40-60); POTASSIUM 3.8 MMOL/L (3.6-5.0); SODIUM 140 MMOL/L (135-145); TOTAL PROTEIN 7.3 GM/DL (6.4-8.2); TRIGLYCERIDES 97 MG/DL (<150); VLDL CHOLESTEROL 19 MG/DL (5-40)
--- NOTE | 2020-11-03 09:36 | NUR ---
SPOKE WITH THE PT (HE HAS SOME RX BOTTLES WITH HIM) AND CALLED [facility] TO COMPLETE THE MED REC THE FOLLOWING ARE FILL DATES FROM [facility]: 06-25-2020 LOSARTAN 100MG #90/90DS- I DID INCLUDE THE PAST DUE FILL DATE ON THE MED REC 09-14-2020 MELOXICAM 7.5MG #90/90DS 10-21-2020 METOPROLOL SUCC ER 25MG #90/90DS 10-21-2020 AMLODIPINE 5MG #90/90DS ACCORDING TO THE PT HE GETS DUTASTERIDE 0.5MG FROM [facility]- PT DOES NOT HAVE THE BOTTLE WITH HIM OTC MEDS: ASPIRIN 81MG COD LIVER W/ VIT A AND D DOCUSATE GLUCOSAMINE/CHONDROITIN VIT D3
[~2020-11-03 10:00] MED LIST changes: -CATHETER FLUSH 10 ML SYR IV PRN; +CHOL10002 PO; +GLUC-113 PO; +HEParin (CATH LAB) 2,000 ML IV ONE; +HEParin 1000 UNIT/ML (10ML VIAL) FOR BOLUS ONE; +LIDOCAINE 1% INJ 20 ML 20 ML VIAL ONE; +MIDAZOLAM 5 MG/5 ML (VERSED) VIAL ONE; +MTP25TSR PO; +NITRO DRIP 25000 MCG/D5W 250 ML IV ONE; +NS IV 1000 ML 1,000 ML IV SCH; +NS IV 1000 ML 1,000 ML ONE; -REGADENOSON 0.4 MG/5 ML SYR (LEXISCAN) IV ONE; +VERAPAMIL 5 MG/2 ML (CALAN) VIAL IV ONE; +fentaNYL INJECTION 100 MCG/2 ML AMP ONE
--- NOTE | 2020-11-03 10:03 | Cardiac Procedure Note-CS/ASA ---
Pre-Procedure Note Pre-Op Procedure Note H&P Reviewed The H&P was reviewed, patient examined and no changes noted. Date H&P Reviewed: Nov 03, 2020 Time H&P Reviewed: 09:00 Conscious Sedation Pre-Proced Time 09:00 ASA Score 3 For ASA 3 and 4: Consider anesthesia and medical clearance. Also, for patients with a history of failed moderate sedation consider anesthesia. Airway Lungs Heart ASA score ASA 1: a normal healthy patient ASA 2: a patient with a mild systemic disease (mid diabetes, controlled hypertension, obesity x ASA 3: a patient with a severe systemic disease that limits activity (angina, COPD, prior Myocardial infarction) ASA 4: a patient with an incapacitating disease that is a constant threat to life (CHF, renal failure) ASA 5: a moribund patient not expected to survive 24 hrs. (ruptured aneurysm) ASA 6: a declared brain- patient whose organs are being harvested. For emergent operations, add the letter E after the classification Mallampati Classification Grade 3 Sedation Plan Analgesia, Amnesia, Plan communicated to team members, Discussed options with patient/fam, Discussed risks with patient/fam The patient is an appropriate candidate to undergo the planned procedure, sedation, and anesthesia. The patient immediately re-assessed prior to indication. SARAH FERRERA MD Nov 03, 2020 10:03 am
--- NOTE | 2020-11-03 10:04 | Discharge Inst-Post CATH ---
Discharge Inst-CATH/EP Problems Reviewed?: Yes Post Cardiac Cath/EP D/C Inst Follow Up/Plan Appointment with Dr. Galarza's office in 2-4 weeks <b>CARDIAC CATH/EP PROCEDURE DISCHARGE INSTRUCTIONS</b> ACTIVITY * Go Home directly and rest. * Limit activity of the leg (or wrist if it was used) for 7 days including aerobics, swimming, jogging, bicycling, etc. * Restrict stair-climbing for 7 days if possible, if not, climb up with your non-cath leg, then bring together on the same step. * Avoid lifting, pushing, pulling or excessive movement of the affected extremity for 7 days. * Customary sexual activity may be resumed after 2 days-use caution not to use a position that strains or causes pain to the affected extremity. * No driving for 24 hours. * NO SMOKING. * Avoid straining for bowel movements for 7 days. * Gentle walking on level ground is allowed. * Returning to work will depend on the type of procedure and the results. Your doctor will discuss this with you. CALL YOUR DOCTOR FOR ANY OF THE FOLLOWING: *If bleeding from the puncture site occurs- Apply gentle pressure to site with clean cloth and call your doctor or EMS. * If a knot or lump forms under the skin, increases in size, or causes pain. * If bruising appears to be worsening or moving further down your leg instead of disappearing. * Temperature above 101 F. CARE OF YOUR GROIN INCISION; * Bruising or purple discoloration of the skin near the puncture site is common. * You may shower only, no bathtub bathing for 5 days. Be careful to avoid slipping as your leg may feel stiff. * If a closure device was used on your femoral artery, please see the attached guide regarding care of the device and your leg. * Leave dressing on FOR 24 hours. CARE OF YOUR WRIST INCISION; * Bruising or purple discoloration of the skin near the puncture site is common. * You may shower. * DO NOT submerge wrist. * Leave dressing on FOR 24 hours. SARAH GALARZA MD Nov 03, 2020 10:04 am
--- NOTE | 2020-11-03 10:07 | Cardiac Cath Report ---
Cardiac Cath Report Physician (s)/Epitaxial Reactor Technician (s) Physician SARAH FERRERA MD Pre-Procedure Diagnosis Pre-Procedure Diagnosis: coronary artery disease Post-Procedure Note Procedure Start Date: Nov 03, 2020 Name of Procedure: Left heart catheterization Findings/Procedure Note PROCEDURE NOTE: 75 years old gentleman with history of chest pain, had an abnormal stress test with inferior wall ischemia scheduled for cardiac catheterization possible PTCA. After explaining the procedure to the patient, all pros and cons were explained, all questions were answered. The patient signed the consent and then he was placed on the cardiac catheterization laboratory. Groin was prepped SL fashion local anesthesia was used. Sheath placed in the right radial artery, [place] catheter was advanced to the left ventricular cavity, pressure was measured no left ventricular gram was done, pulled back and engaged the left main courses system and the left coronary angina gram was done then turned to the right coronary system and right coronary angiogram was done. At the end of the procedure the sheath was removed. Vascular band was used FINDINGS: Hemodynamics LV 92/11, end-diastolic pressure of 11 Aorta 88/50 mean of 62 ANATOMY: Left Main is free of obstructive disease Left Anterior Descending slightly tortuous with mild disease nonobstructive disease Left Circumflex has mild disease nonobstructive disease Right Coronory Artery is a dominant artery with ostial 40-50 percent stenosis nonobstructive disease LV Gram was not done, pressure was measured CONCLUSION: 1. Nonobstructive coronary artery disease, ostial right coronary artery with 40-50 percent stenosis, LAD has mild nonobstructive disease. 2. Normal left ventricular end-diastolic pressure DISCUSSION AND RECOMMENDATION: Medical therapy is recommended no intervention is warranted, abnormal stress test is probably due to extracardiac attenuation Anesthesia Type: Conscious Sedation Estimated blood loss (mL): 15 ml Contrast Amount: 35 ml Total Radiation Dose: 338 mGy Post-Procedure Diagnosis Post-operative diagnosis: Chest pain Coronary artery disease Hypertension Hyperlipidemia SARAH FERRERA MD Nov 03, 2020 10:07 am
[2020-11-03] MEDS ORDERED: NS IV 1000 ML 1,000 ML IV SCH (10:15)
[2020-11-03] MEDS ORDERED: ATOR10TA PO (10:16)
== END 2020-11-03 12:40 | disposition home or self-care (01) ==
LOC: CATH 10:00 → SDC 10:19 → CATH 12:40
PROVIDERS: ATTEND Internal Medicine Cardiovascular Disease
DX: I25.10 Atherosclerotic heart disease of native coronary artery without angina pectoris (principal); I10 Essential (primary) hypertension; E78.2 Mixed hyperlipidemia; K21.9 Gastro-esophageal reflux disease without esophagitis; M19.90 Unspecified osteoarthritis, unspecified site; N40.0 Benign prostatic hyperplasia without lower urinary tract symptoms; I65.29 Occlusion and stenosis of unspecified carotid artery; Z79.82 Long term (current) use of aspirin; Z79.899 Other long term (current) drug therapy
CPT/HCPCS: 71045; 80053; 80061; 85027; 85610; 85730; 87081; 93458; C1894; 36415

== ENCOUNTER 2021-01-14 12:59 | Outpatient (RCR) | payer MEDICARE ==
[~2021-01-14 12:59] MED LIST changes: +ATOR10TA PO; +CHOL-34 PO; -CHOL10002 PO; -HEParin (CATH LAB) 2,000 ML IV ONE; -HEParin 1000 UNIT/ML (10ML VIAL) FOR BOLUS ONE; -LIDOCAINE 1% INJ 20 ML 20 ML VIAL ONE; -MIDAZOLAM 5 MG/5 ML (VERSED) VIAL ONE; -NITRO DRIP 25000 MCG/D5W 250 ML IV ONE; -NS IV 1000 ML 1,000 ML IV SCH; -NS IV 1000 ML 1,000 ML ONE; -VERAPAMIL 5 MG/2 ML (CALAN) VIAL IV ONE; -fentaNYL INJECTION 100 MCG/2 ML AMP ONE
== END 2021-01-14 13:45 | disposition home or self-care (01) ==
PROVIDERS: ATTEND Orthopaedic Surgery
DX: R29.898 Other symptoms and signs involving the musculoskeletal system (principal); Z96.651 Presence of right artificial knee joint

== ENCOUNTER 2021-05-20 13:45 | Outpatient (RCR) | payer MEDICARE | END 2021-06-10 10:31 | disposition home or self-care (01) | PROVIDERS: ATTEND Orthopaedic Surgery | DX: Z47.1 Aftercare following joint replacement surgery (principal); Z96.653 Presence of artificial knee joint, bilateral; I10 Essential (primary) hypertension ==

== ENCOUNTER 2023-07-17 05:38 | Outpatient (CLI) | payer MEDICARE ==
[~2023-07-17] VITALS: Ht 175.3 cm; Wt 84.1 kg
[~2023-07-17 05:38] MED LIST changes: -LOSA100T57 PO; +LOSA100T58 PO
[2023-07-17] MEDS ORDERED: LOSA50TA63 PO (15:11)
[2023-07-17] MEDS ORDERED: ASPI-999 PO (15:11)
== END 2023-07-17 15:33 | disposition home or self-care (01) ==
LOC: PREOP 05:38
PROVIDERS: ATTEND Specialist
DX: Z01.818 Encounter for other preprocedural examination (principal)

== ENCOUNTER 2023-07-20 09:15 | Day surgery (SDC) | payer MEDICARE ==
[~2023-07-20] VITALS: Ht 175.3 cm; Wt 84.1 kg
[~2023-07-20 09:15] MED LIST changes: +ASPI-999 PO
[2023-07-20] MEDS: TETRACAINE 0.5% OPHTH SOLN 4 ML BTL (SINGLE DOSE ONLY) OU PRN ×3 (10:13→10:25)
[2023-07-20] MEDS ORDERED: MIDAZOLAM INJ 2 MG/2 ML VIAL ONE (10:14)
[2023-07-20] MEDS ORDERED: LIDOCAINE PF 1% 2 ML VIAL IR PRN (10:15)
[2023-07-20] MEDS ORDERED: TIMOLOL 0.5% (CATARACTS) 0.3 ML BTL OU PRN (10:15)
[2023-07-20] MEDS ORDERED: POVIDONE IODINE OPHTH SOLN 5% 30 ML OP ONE (10:15)
[2023-07-20] MEDS ORDERED: MOXIFLOXACIN OPHTH SOLN 5 MG/ML 0.5 ML SYRINGE OP ONE (10:15)
[2023-07-20] MEDS: PHENYLEPHRINE 10% OPHTH SOLN 5 ML BTL OU SCH ×2 (10:19→10:25)
[2023-07-20] MEDS: TROPICAMIDE 1% OPH SOLN (MYDRIACYL) 15 ML BTL OP SCH ×2 (10:19→10:25)
[2023-07-20 10:23] VITALS: BP 149/79
--- NOTE | 2023-07-20 10:50 | Ophthalmologist Pre-Op Note ---
Pre-Operative Progress Note H&P Reviewed The H&P was reviewed, patient examined and no changes noted. Date H&P Reviewed: Jul 20, 2023 Time H&P Reviewed: 10:49 Pre-Op Dx Cataract, Left Eye STACY MCKEON MD Jul 20, 2023 10:50
--- NOTE | 2023-07-20 11:13 | Ophthalmology Operative Report ---
Cataract removal/placement IOL PREOPERATIVE DIAGNOSIS: Cataract Left Eye POSTOPERATIVE DIAGNOSIS: Cataract Left Eye PROCEDURE: Cataract removal and placement of posterior chamber implant, left eye SURGEON: Reji Mckeon ANESTHESIA: Topical with sedation COMPLICATIONS: None ESTIMATED BLOOD LOSS: Minimal DESCRIPTION OF PROCEDURE: After proper informed consent was obtained, the patient, a 78 male, was taken to the Operating Room and the left eye was anesthetized with tetracaine. The left eye was then prepped and draped in the usual manner. A wire lid speculum was placed. A paracentesis was made at the left hand position. Preservative free lidocaine was injected into the anterior chamber followed by viscoelastic. A clear corneal incision was made in the temporal position. A capsulorrhexis was preformed and the central nuclear and cortical material were removed. The posterior capsule was polished and an Mike 21.0 CNA0T0 was placed into the capsular bag. The residual viscoelastic was aspirated and balanced saline solution was injected into the anterior chamber. Moxifloxacin was injected into the anterior chamber. The wound was checked and found to be water tight. The patient tolerated the procedure well without complications. REJI MCKEON MD Jul 20, 2023 11:13
[2023-07-20 11:20] VITALS: BP 137/73
--- NOTE | 2023-07-20 12:16 | Anesthesia-General Post-Op ---
MAC Patient Condition Mental Status/LOC: Same as Preop Cardiovascular: Satisfactory Nausea/Vomiting: Absent Respiratory: Satisfactory Pain: Controlled Complications: Absent Post Op Complications Complications None Follow Up Care/Instructions Patient Instructions None needed. Anesthesiology Discharge Order Discharge Order Patient is doing well, no complaints, stable vital signs, no apparent adverse anesthesia problems. No complications reported per nursing. SHAR MCCORD CRNA Jul 20, 2023 12:16
== END 2023-07-20 11:22 | disposition home or self-care (01) ==
LOC: SDC 09:15
PROVIDERS: ATTEND Specialist
DX: H25.9 Unspecified age-related cataract (principal); G47.33 Obstructive sleep apnea (adult) (pediatric)
CPT/HCPCS: 66984; V2632

== ENCOUNTER 2023-09-05 15:06 | Outpatient (CLI) | payer MEDICARE ==
[~2023-09-05] VITALS: Ht 175 cm; Wt 84.1 kg
== END 2023-09-05 16:05 | disposition home or self-care (01) ==
LOC: PREOP 15:06
PROVIDERS: ATTEND Specialist
DX: Z01.818 Encounter for other preprocedural examination (principal)

== ENCOUNTER 2023-09-07 10:22 | Day surgery (SDC) | payer MEDICARE ==
[~2023-09-07] VITALS: Ht 175 cm; Wt 84.1 kg
[2023-09-07] MEDS ORDERED: MIDAZOLAM INJ 2 MG/2 ML VIAL ONE (10:48)
[2023-09-07 11:00] VITALS: BP 133/78
[2023-09-07] MEDS: TETRACAINE 0.5% OPHTH SOLN 5 ML BTL OU PRN ×4 (11:14→11:26)
[2023-09-07] MEDS ORDERED: MOXIFLOXACIN OPHTH SOLN 5 MG/ML 0.5 ML SYRINGE OP ONE (11:15)
[2023-09-07] MEDS ORDERED: LIDOCAINE PF 1% 2 ML VIAL IR PRN (11:15)
[2023-09-07] MEDS ORDERED: TIMOLOL 0.5% (CATARACTS) 0.3 ML BTL OU PRN (11:15)
[2023-09-07] MEDS ORDERED: POVIDONE IODINE OPHTH SOLN 5% 30 ML OP ONE (11:15)
[2023-09-07] MEDS: PHENYLEPHRINE 10% OPHTH SOLN 5 ML BTL OU SCH ×3 (11:19→11:27)
[2023-09-07] MEDS: TROPICAMIDE 1% OPH SOLN (MYDRIACYL) 15 ML BTL OP SCH ×3 (11:21→11:27)
--- NOTE | 2023-09-07 11:46 | Ophthalmologist Pre-Op Note ---
Pre-Operative Progress Note H&P Reviewed The H&P was reviewed, patient examined and no changes noted. Date H&P Reviewed: Sep 07, 2023 Time H&P Reviewed: 11:46 Pre-Op Dx Cataract, Right Eye STACY MCKEON MD Sep 07, 2023 11:46
--- NOTE | 2023-09-07 12:13 | Ophthalmology Operative Report ---
Cataract removal/placement IOL PREOPERATIVE DIAGNOSIS: Cataract Right Eye POSTOPERATIVE DIAGNOSIS: Cataract Right Eye PROCEDURE: Cataract removal and placement of posterior chamber implant, right eye SURGEON: Reji Mckeon ANESTHESIA: Topical with sedation COMPLICATIONS: None ESTIMATED BLOOD LOSS: Minimal DESCRIPTION OF PROCEDURE: After proper informed consent was obtained, the patient, a 78 male, was taken to the Operating Room and the right eye was anesthetized with tetracaine. The right eye was then prepped and draped in the usual manner. A wire lid speculum was placed. A paracentesis was made at the left hand position. Preservative free lidocaine was injected into the anterior chamber followed by viscoelastic. A clear corneal incision was made in the temporal position. A capsulorrhexis was preformed and the central nuclear and cortical material were removed. The posterior capsule was polished and Mike 19.5 CNA0T0 IOL was placed into the capsular bag. The residual viscoelastic was aspirated and balanced saline solution was injected into the anterior chamber. Moxifloxacin was injected into the anterior chamber. The wound was checked and found to be water tight. The patient tolerated the procedure well without complications. REJI MCKEON MD Sep 07, 2023 12:13
[2023-09-07 12:17] VITALS: BP 133/70
--- NOTE | 2023-09-07 12:56 | Anesthesia-General Post-Op ---
MAC Patient Condition Mental Status/LOC: Same as Preop Cardiovascular: Satisfactory Nausea/Vomiting: Absent Respiratory: Satisfactory Pain: Controlled Complications: Absent Post Op Complications Complications None Follow Up Care/Instructions Patient Instructions None needed. Anesthesiology Discharge Order Discharge Order Patient was doing well after the procedure with no complaints, stable vital signs, no apparent adverse anesthesia problems. No complications reported per nursing. JOSE LUIS SCHAEFFER DO Sep 07, 2023 12:56
== END 2023-09-07 12:18 | disposition home or self-care (01) ==
LOC: SDC 10:22
PROVIDERS: ATTEND Specialist
DX: H25.9 Unspecified age-related cataract (principal); G47.33 Obstructive sleep apnea (adult) (pediatric)
CPT/HCPCS: 66984; V2632